=== PATIENT | female | born 1955 | race Caucasian/White ===

== ENCOUNTER → 2017-04-07 13:04 | Outpatient (CLI) | payer OTHER, SELFPAY ==
[2017-04-07 16:09] LABS: D-Dimer Quantitative (DVT/PE) < 0.27 FEU/ug/m (0.27-0.49)
== END ==
PROVIDERS: Family Provider Family Medicine; PCP Family Medicine; Visit Provider Family Medicine
DX: R05 Cough (principal)
CPT/HCPCS: 36415; 85379

== ENCOUNTER → 2017-06-01 09:03 | Outpatient (CLI) | payer OTHER, SELFPAY ==
--- NOTE | 2017-06-01 09:10 | RAD_ITS ---
STUDY: X-RAY - LEFT SHOULDER REASON FOR EXAM: Female, 61 years old. Pain. TECHNIQUE: 4 view(s) of the shoulder. COMPARISON: None. FINDINGS: Normal glenohumeral articulation. Normal acromioclavicular joint. Normal acromion. Normal humeral head and visualized proximal humerus. Surgical clips are seen in the left axillary region. Normal visualized pulmonary apex. RAD/Shoulder min 2 Views IMPRESSION: Normal x-ray examination of the shoulder. Electronically Signed: Shahram Steele MD at 15:47 EDT Tel [phone], Service support ,
--- NOTE | 2017-06-01 09:10 | RAD_ITS ---
STUDY: X-RAY - CERVICAL SPINE REASON FOR EXAM: Female, 61 years old. Neck pain. TECHNIQUE: 5 view(s) of the cervical spine were obtained including oblique views. COMPARISON: None FINDINGS: Normal anterior atlantoaxial articulation. Normal odontoid process. There is straightening of the normal cervical lordosis. There is multi-level endplate spondylosis. There is multi-level degenerative disc disease with multilevel disc space narrowing. Normal visualized intervertebral neuroforamina. The soft tissue structures are unremarkable. RAD/Cerv Spine 4 or 5 Views IMPRESSION: Anterior spondylosis and disc space narrowing at the C4-C5, C5-C6 and C6-C7 levels. Electronically Signed: Shahram Steele MD at 15:49 EDT Tel [phone], Service support ,
== END ==
PROVIDERS: Family Provider Family Medicine; PCP Family Medicine; Visit Provider Family Medicine
DX: M54.2 Cervicalgia (principal); M25.512 Pain in left shoulder
CPT/HCPCS: 72050; 73030

== ENCOUNTER → 2017-06-04 09:58 | Outpatient (CLI) | payer OTHER, SELFPAY ==
--- NOTE | 2017-06-04 09:59 | ECHOCS_ITS ---
Reason For Study: Palpitations Procedure This was a 2D Doppler, Color Flow transthoracic echocardiogram. Exam performed in department. Left Ventricle Normal size and thickness. The estimated ejection fraction is 65 %. Stage 1 diastolic dysfunction. No regional wall motion abnormalities noted. Right Ventricle Normal size and thickness. Normal systolic function. Atria Normal left atrium. Normal right atrium. Normal atrial septum. Mitral Valve The mitral valve is structurally normal. No prolapse or stenosis seen. Trivial mitral valve insufficiency. Tricuspid Valve Normal tricuspid valve. Trivial tricuspid valve insufficiency. Right ventricular systolic pressure estimated to be 20 mmHg. Aortic Valve Normal aortic valve. Trisinus/trileaflet aortic valve. Pulmonic Valve Normal pulmonic valve. Great Vessels Normal aortic root. Normal arch. Normal inferior vena cava. Inferior vena cava collapse with sniff. Pericardium/Pleural No pericardial effusion. Medication Definity0.3ml given slow IV push to enhance endocardial definition. MMode/2D Measurements & Calculations LVIDd: 3.9 cm IVSd: 1.1 cm Ao root diam: 2.6 cm LVIDs: 2.8 cm LVPWd: 0.91 cm LA dimension: 4.1 cm RVDd: 2.7 cm FS: 28.5 % LAV(MOD-bp): 20.7 ml LA A4 area: 9.7 cm2 RA A4 area: 7.7 cm2 LAV(MOD-bp) Indexed: 11.9 ml/m2 LAV(MOD-sp2): 24.5 ml LAV(MOD-sp4): 16.9 ml Doppler Measurements & Calculations MV E max joseph: 70.3 cm/sec Lat Peak E' Joseph: 7.0 cm/sec Med Peak E' Joseph: 4.8 cm/sec MV A max joseph: 100.9 cm/sec E/E' lat: 10.1 E/E' med: 14.5 MV E/A: 0.70 Ao V2 max: 108.3 cm/sec LV V1 max: 86.0 cm/sec PA V2 max: 79.7 cm/sec Ao max P.7 mmHg LV V1 max P.0 mmHg Ao V2 mean: 83.8 cm/sec Ao mean P.1 mmHg Ao V2 VTI: 23.8 cm TR max joseph: 193.4 cm/sec TR max P.1 mmHg Interpretation Summary The estimated ejection fraction is 65 %. Stage 1 diastolic dysfunction. Trivial mitral valve insufficiency. Trivial tricuspid valve insufficiency. Right ventricular systolic pressure estimated to be 20 mmHg. There is no comparison study available. Contrast injection was performed. The study was technically difficult. Ordering Physician: Mando Woodruff Referring Physician: Mando Woodruff Performed By: Ce Cox RDCS, RVT
== END ==
PROVIDERS: Family Provider Family Medicine; PCP Family Medicine; Visit Provider Internal Medicine Cardiovascular Disease
DX: R00.2 Palpitations (principal); I10 Essential (primary) hypertension; E78.5 Hyperlipidemia, unspecified; R00.0 Tachycardia, unspecified; E66.9 Obesity, unspecified
CPT/HCPCS: 93306; Q9957; A4216; C8929

== ENCOUNTER → 2017-06-30 13:26 | Outpatient (CLI) | payer OTHER, SELFPAY ==
--- NOTE | 2017-06-30 13:27 | STE_ITS ---
Reason For Study: PALPITATIONS, HTN, Stress Results Protocol: Sai Protocol Maximum Predicted HR: 160 bpm Target HR: 136 bpm% Max imum Predicted HR: 112 % DurationHeart Rate Stage (mm:ss) (bpm) BPCom ment BASELINE 96 162/86 0.2 ML DEFINITY STAGE 1 3:00 15 7 210/50 STAGE 2 3:00 17 9 220/460.2 ML DEFINITY RECOVERY 115 152/8 60.1 ML DEFINITY Stress Duration: 6:00 mm:ss Maximum Stress HR: 179 bpm Baseline Echocardiogram Findings The estimated ejection fraction is 65 %. Stress Echo Wall motion Data Resting WMIntermediate WMStress WM Resting Wall Motion Wall Motion Stress No regional wall motion No regional wall motion abnormalities noted. abnormalities noted. EKG Data Normal intervals are noted. The patient exercised according to the regular Sai protocol for a total duration of 6:00. The maximum heart rate attained was 179 beats per minute. This was 111% of maximum predicted heart rate. The patient exercised into stage 3 of the Sai protocol. During stress, there were no ST or T wave changes noted to suggest ischemia. No arrhythmias noted. No clinical angina was noted. Interpretation Summary The study was technically difficult. Contrast injection was performed. The estimated ejection fraction is 65 %. Normal adequate treadmill echocardiogram. Negative for ischemia by ECG and ECHO criteria. No anginal symptoms noted. No arryhthmias noted. Average exercise capacity for age. Final LVEF=75%. Decreased sensitivity due to poor echo windows and need for Definity. Ordering Physician: Mando Woodruff Referring Physician: Mando Woodruff Performed By: Ce Cox, FRANCESCO, RVT
== END ==
PROVIDERS: Family Provider Family Medicine; PCP Family Medicine; Visit Provider Internal Medicine Cardiovascular Disease
DX: R00.2 Palpitations (principal); I10 Essential (primary) hypertension; E78.5 Hyperlipidemia, unspecified; R00.0 Tachycardia, unspecified; I49.8 Other specified cardiac arrhythmias; E66.9 Obesity, unspecified
CPT/HCPCS: 93017; 93350; Q9957; A4216; C8928

== ENCOUNTER → 2017-09-02 15:28 | Outpatient (CLI) | payer OTHER, SELFPAY ==
--- NOTE | 2017-09-02 15:32 | MRI_ITS ---
STUDY: MRI CERVICAL SPINE WITHOUT CONTRAST REASON FOR EXAM: Female, 61 years old. CONSTANT R NECK PAIN, PULLING, RADIATES DOWN R ARM X 4 MONTHS TECHNIQUE: Standardized fat and water weighted pulse sequences were obtained in the sagittal and axial planes. COMPARISON: None FINDINGS: Normal foramen magnum and brainstem-cervical cord junction. Normal craniovertebral junction. There are degenerative changes of the anterior atlantoaxial articulation. Normal odontoid process. Normal cervical lordosis. Normal vertebral bodies and posterior osseous elements. C2-3: Normal endplates. Normal disc height, signal and morphology. Normal central canal and intervertebral neural foramina. C3-4: Normal endplates. Normal disc height, signal and morphology. Normal central canal and intervertebral neural foramina. C4-5: Normal endplates. Normal disc height, signal and morphology. Normal central canal and intervertebral neural foramina. C5-6: Endplate spondylosis. Central and paracentral disc bulge. Degenerative changes of the bilateral facet joints and uncovertebral joints. Mild narrowing of the central canal. Normal bilateral intervertebral neural foramina. C6-7: Endplate spondylosis. Central and paracentral disc bulge more prominent on the right side revision C7 nerve root. Degenerative changes of the bilateral facet joints and uncovertebral joints. Moderate narrowing of the central canal and mild narrowing of the bilateral intervertebral neural foramina. C7-T1: Normal endplates. Normal disc height, signal and morphology. Normal central canal and intervertebral neural foramina. Normal cervical cord. Normal visualized soft tissue structures. MRI/Spine Cervical (Routine) IMPRESSION: C5-6 and C6-7 degenerative changes, as described above. Electronically Signed: Lissy Rick MD at 4:55 EDT Tel , Service support ,
== END ==
LOC: MRI 15:28
PROVIDERS: Family Provider Family Medicine; PCP Family Medicine; Visit Provider Family Medicine
DX: M50.30 Other cervical disc degeneration, unspecified cervical region (principal); M47.22 Other spondylosis with radiculopathy, cervical region; M46.82 Other specified inflammatory spondylopathies, cervical region; R42 Dizziness and giddiness
CPT/HCPCS: 72141

== ENCOUNTER → 2017-10-05 12:18 | Outpatient (CLI) | payer SELFPAY, OTHER ==
[2017-10-05 12:40] LABS: CREATININE FINGERSTICK < 0.6 mg/dL (0.55-1.02); EGFR FINGERSTICK > 60.0000 mL/min (>60)
== END ==
PROVIDERS: Family Provider Family Medicine; PCP Family Medicine; Visit Provider Obstetrics & Gynecology
DX: N63.10 Unspecified lump in the right breast, unspecified quadrant (principal); Z85.3 Personal history of malignant neoplasm of breast; Z90.13 Acquired absence of bilateral breasts and nipples
CPT/HCPCS: 77059; A9585; A4216; C8908

== ENCOUNTER → 2017-11-01 13:13 | Outpatient (CLI) | payer OTHER, SELFPAY ==
[2017-11-01 16:16] LABS: Absolute Lymphocyte Count 2.89 X10^3/ul (0.83-4.51); Basophil# 0.05 X10^3/uL; Basophil% 0.6 % (0-1); Differential Indicated SCAN CRITERIA MET; Eosinophil# 0.28 X10^3/uL; Eosinophils% 3.5 % (0-5); Hematocrit 44.5 % (37-47); Lymphocyte # 2.89 X10^3/ul (4.0); Lymphocyte % 36.3 % (19-41); Mean Corp Hgb Conc 31.5 g/gl (32-36); Mean Corpuscular Hgb 30.8 pg (27.0-32.0); Mean Platelet Vol. 9.9 fl (6.2-12.0); Monocyte# 0.73 X10^3/uL; Monocyte% 9.2 % (0-10); Neutrophil % 50.3 % (47-70); POSITIVE COUNT NO; POSITIVE DIFFERENTIAL NO; POSITIVE MORPHOLOGY YES; Platelet Count 228 K/mm3 (150-450); RBC Distribution Width CV 12.4 % (11.6-14.6); RBC Distribution Width SD 44.1 fl (35.1-43.9); Red Blood Count 4.54 M/mm3 (4.2-5.4)
[2017-11-01 17:16] LABS: Differential Comment SCANNED
== END ==
PROVIDERS: Family Provider Family Medicine; PCP Family Medicine; Visit Provider Family Medicine
DX: J01.90 Acute sinusitis, unspecified (principal); R05 Cough; M47.22 Other spondylosis with radiculopathy, cervical region
CPT/HCPCS: 36415; 85025; 87070; 87205; 87633

== ENCOUNTER → 2017-12-02 16:46 | Outpatient (CLI) | payer OTHER, SELFPAY ==
--- NOTE | 2017-12-02 17:13 | RAD_ITS ---
STUDY: X-RAY CHEST REASON FOR EXAM: Female, 62 years old. Cough TECHNIQUE: Frontal and lateral views COMPARISON: February 24, 2017 FINDINGS: The lungs are clear and expanded. There is no demonstrated pleural abnormality. Normal size heart. Normal mediastinum and brooklynn. Normal visualized pulmonary arteries. Normal visualized aortic arch and descending thoracic aorta. Normal visualized thoracic spine. Normal visualized ribs, clavicles, and shoulders. There is no demonstrated abnormality of the visualized soft tissue structures of the upper abdomen. RAD/Chest PA and Lateral IMPRESSION: Normal x-ray examination of the chest. Electronically Signed: Stevie John DO at 21:45 EDT Tel [phone], Service support ,
[2017-12-02 17:33] LABS: Absolute Lymphocyte Count 3.05 X10^3/ul (0.83-4.51); Absolute Neutrophil Count 3.7 X10^3/uL (2.0-7.7); Basophil# 0.02 X10^3/uL; Basophil% 0.3 % (0-1); Eosinophil# 0.19 X10^3/uL; Eosinophils% 2.5 % (0-5); Hematocrit 42.1 % (37-47); Hemoglobin 13.5 g/dl (12.0-15.0); Lymphocyte # 3.05 X10^3/ul (4.0); Lymphocyte % 40.7 % (19-41); Mean Corp Hgb Conc 32.1 g/gl (32-36); Mean Corpuscular Hgb 30.9 pg (27.0-32.0); Mean Corpuscular Volume 96.3 fL (81-99); Mean Platelet Vol. 9.6 fl (6.2-12.0); Monocyte# 0.53 X10^3/uL; Monocyte% 7.1 % (0-10); Neutrophil % 49.3 % (47-70); Platelet Count 247 K/mm3 (150-450); RBC Distribution Width CV 12.3 % (11.6-14.6); RBC Distribution Width SD 43.2 fl (35.1-43.9); Red Blood Count 4.37 M/mm3 (4.2-5.4); White Blood Count 7.5 K/mm3 (4.4-11.0)
[2017-12-02 17:51] LABS: POSITIVE COUNT NO; POSITIVE DIFFERENTIAL NO; POSITIVE MORPHOLOGY NO
== END ==
PROVIDERS: Family Provider Family Medicine; PCP Family Medicine; Referring Provider Family Medicine; Visit Provider Family Medicine
DX: R05 Cough (principal)
CPT/HCPCS: 36415; 71046; 85025

== ENCOUNTER → 2017-12-30 14:51 | Outpatient (CLI) | payer OTHER, SELFPAY ==
[2017-12-30 18:18] LABS: Hemoglobin A1c 7.1 % (4.2-6.3)
[2017-12-30 18:21] LABS: ALB/GLOB Ratio 1.2 RATIO (0.9-2.4); AST(SGOT) 23 U/L (15-37); Alanine Aminotransfer ALT/SGPT 40 U/L (13-56); Albumin, Serum 3.7 g/dL (3.2-5.0); Alkaline Phosphatase 103 U/L (45-117); Anion Gap 8 (5-15); BUN 14 mg/dL (7-18); BUN/Creat Ratio 20.5 RATIO (10-20); Calcium,Total 9.2 mg/dL (8.5-10.1); Chloride 99 mmol/L (98-107); Cholesterol 182 mg/dL (200); Creatinine, Serum 0.68 mg/dL (0.55-1.02); EST Glomerular Filtration Rate 93 mL/min (>60); Est Glom Filt Rate - Afr Amer 112 mL/min (>60); Globulin 3.1 g/dL (2.2-4.2); Glucose 118 mg/dL (74-106); High Density Lipoprotein 47 mg/dL; Potassium 3.7 mmol/L (3.5-5.1); Protein, Total 6.8 g/dL (6.4-8.2); Sodium Level 138 mmol/L (136-145); T4 Free Direct 0.92 ng/dL (0.76-1.46); Thyroid Stim Hormone (TSH) 0.78 uIU/mL (0.358-3.74); Triglycerides 257 mg/dL; Very Low Density Lipoprotein 51 mg/dL (5-40)
[2017-12-30 18:37] LABS: Microalbumin,Random Urine < 5.0 mg/L (NO RANGE EST.)
== END ==
PROVIDERS: Family Provider Family Medicine; PCP Family Medicine; Visit Provider Family Medicine
DX: Z00.00 Encounter for general adult medical examination without abnormal findings (principal); E11.9 Type 2 diabetes mellitus without complications; I10 Essential (primary) hypertension; E78.5 Hyperlipidemia, unspecified
CPT/HCPCS: 36415; 80053; 80061; 82043; 82570; 83036; 84439; 84443

== ENCOUNTER → 2018-01-04 09:45 | Outpatient (CLI) | payer OTHER, SELFPAY ==
--- NOTE | 2018-01-04 15:57 | PFTCOMP_ITS ---
COMPLETE PULMONARY FUNCTION TEST INTERPRETATION Brief HPI: Patient is a 62 year old female, currently under the care of Dr. Rosales, who presents to [facility] for complete pulmonary function tests secondary to diagnosis of chronic cough. Respiratory therapist reports good effort and reproducible results. Interpretation: Forced expiration spirometry shows no large airways obstructive ventilatory defect with an FEV1 of 103% predicted. There is no significant bronchodilator re sponse by strict ATS criteria. Spirograms are of good quality and plateau normally. The respiratory flow volume loop shows a normal pattern. Lung volumes by body plethysmography show a normal total lung capacity at 3.84 L, 90% predicted. All other lung volumes are within normal limits. Diffusion capacity by carbon monoxide is normal at 72% predicted. The airway resistance is normal. No previous pulmonary function tests were available for review. Impression: These pulmonary function tests are within normal limits
== END ==
PROVIDERS: Family Provider Family Medicine; PCP Family Medicine; Referring Provider Internal Medicine Critical Care Medicine; Visit Provider Internal Medicine Critical Care Medicine
DX: R05 Cough (principal)
CPT/HCPCS: 94060; 94726; 94729

== ENCOUNTER → 2018-02-24 16:28 | Outpatient (CLI) | payer OTHER, SELFPAY ==
[2018-01-05 09:14] VITALS: BMI 31.9
== END ==
PROVIDERS: Family Provider Family Medicine; PCP Family Medicine; Referring Provider Nurse Practitioner Acute Care; Visit Provider Nurse Practitioner Acute Care
DX: R05 Cough (principal)
CPT/HCPCS: 87070; 87205

== ENCOUNTER → 2018-05-18 11:08 | Outpatient (CLI) | payer OTHER, SELFPAY ==
[2018-01-05 09:14] VITALS: BMI 31.9
--- NOTE | 2018-05-18 11:11 | RAD_ITS ---
STUDY: X-RAY - LEFT WRIST REASON FOR EXAM: Female, 62 years old. Fall May 02. Lateral wrist pain. TECHNIQUE: 3 view(s) of the wrist were obtained. COMPARISON: None. FINDINGS: Normal visualized distal radius and ulna. Normal radiocarpal articulation. Normal distal radioulnar articulation. Normal carpal bones. There is degenerative arthrosis of the carpal articulations. There is degenerative arthrosis of the carpometacarpal articulation of the thumb. Normal second through fifth carpometacarpal articulations. Normal visualized metacarpal bones. The soft tissue structures are unremarkable. RAD/Wrist min 3 Views IMPRESSION: Degenerative changes of the wrist and hand without acute fracture or dislocation. Electronically Signed: Mark Jones DO at 15:26 EDT Tel [phone], Service support ,
== END ==
PROVIDERS: Family Provider Family Medicine; PCP Family Medicine; Referring Provider Family Medicine; Visit Provider Family Medicine
DX: M25.532 Pain in left wrist (principal)
CPT/HCPCS: 73110

== ENCOUNTER → 2018-12-13 12:56 | Outpatient (CLI) | payer OTHER, SELFPAY ==
[2018-07-04 13:16] VITALS: BMI 31.9
--- NOTE | 2018-12-13 13:45 | MRI_ITS ---
STUDY: BILATERAL BREAST MR WITHOUT AND WITH CONTRAST REASON FOR EXAM: Female, 63 years old. History of bilateral mastectomies in 2007 for BRCA1 gene mutation. Evaluate for implant integrity and breast cancer. TECHNIQUE: Multi-sequence multi-echo imaging of both breasts was performed with a dedicated breast coil. T1-weighted and T2-weighted images were performed before the administration of contrast. T1-weighted images were also performed after the administration of IV Dotarem 15 without complications. COMPARISON: Prior breast MRI dated October 05, 2017 FINDINGS: Stable bilateral mastectomies with subpectoral silicone implants. Minimal folds bilaterally, relatively unchanged. No complications identified. No abnormal enhancing masses or areas of non-mass enhancement in the left breast. No enlarged or abnormal lymph nodes. No abnormality in the visualized regions of the chest or liver. MRI/Breast Bilateral W/O and W IMPRESSION: Bilateral mastectomy with subpectoral silicone implant placement without complications. No other abnormality is present. CATEGORY: BIRADS Category 2: Benign. A letter regarding these results will be sent to the patient by the facility within 30 days. Electronically Signed: Gerald Chery MD at 16:39 EDT , Service support ,
[2018-12-13 13:51] LABS: CREATININE FINGERSTICK < 0.6 mg/dL (0.55-1.02); EGFR FINGERSTICK > 60.0000 mL/min (>60)
== END ==
PROVIDERS: Family Provider Family Medicine; PCP Family Medicine; Referring Provider Obstetrics & Gynecology; Visit Provider Obstetrics & Gynecology
DX: Z85.3 Personal history of malignant neoplasm of breast (principal); Z98.82 Breast implant status; Z15.01 Genetic susceptibility to malignant neoplasm of breast
CPT/HCPCS: 77049; A9575; A4216; C8908

== ENCOUNTER → 2019-07-26 09:25 | Outpatient (CLI) | payer OTHER, SELFPAY ==
[2018-07-04 13:16] VITALS: BMI 31.9
[2019-07-26 10:50] LABS: Absolute Lymphocyte Count 2.57 X10^3/uL (0.83-4.51); Absolute Neutrophil Count 3.5 X10^3/uL (2.0-7.7); Basophil# 0.03 X10^3/uL; Basophil% 0.5 % (0-1); Eosinophil# 0.08 X10^3/uL; Eosinophils% 1.2 % (0-5); Hematocrit 43.3 % (37-47); Hemoglobin 14.2 g/dL (12.0-15.0); Lymphocyte # 2.57 X10^3/ul (4.0); Lymphocyte % 38.6 % (19-41); Mean Corp Hgb Conc 32.8 g/dL (32-36); Mean Corpuscular Hgb 32.2 pg (27.0-32.0); Mean Corpuscular Volume 98.2 fL (81-99); Mean Platelet Vol. 9.8 fl (6.2-12.0); Monocyte# 0.48 X10^3/uL; Monocyte% 7.2 % (0-10); NRBC Flagged by Analyzer 0 % (0-5); Neutrophil # 3.48 X10^3/uL (2.7-7.7); Neutrophil % 52.3 % (47-70); Platelet Count 229 K/mm3 (150-450); RBC Distribution Width CV 11.9 % (11.6-14.6); RBC Distribution Width SD 42.9 fl (35.1-43.9); Red Blood Count 4.41 M/mm3 (4.2-5.4); White Blood Count 6.7 K/mm3 (4.4-11.0)
[2019-07-26 10:56] LABS: Hemoglobin A1c 6.9 % (3.8-5.6)
[2019-07-26 11:01] LABS: Microalbumin,Random Urine 9.1 mg/L (NO RANGE EST.); Microalbumin:Creatinine Ratio 5.8 mg/g CRE (<30 mg/g CRE)
[2019-07-26 11:22] LABS: ALB/GLOB Ratio 1.2 RATIO (0.9-2.4); AST(SGOT) 118 U/L (15-37); Alanine Aminotransfer ALT/SGPT 129 U/L (13-56); Albumin, Serum 3.8 g/dL (3.2-5.0); Alkaline Phosphatase 103 U/L (45-117); Anion Gap 7 (5-15); BUN 13 mg/dL (7-18); Calcium,Total 9.5 mg/dL (8.5-10.1); Chloride 102 mmol/L (98-107); Cholesterol 172 mg/dL (200); Creatinine, Serum 0.72 mg/dL (0.55-1.02); EST Glomerular Filtration Rate 87 mL/min (>60); Est Glom Filt Rate - Afr Amer 105 mL/min (>60); Globulin 3.3 g/dL (2.2-4.2); Glucose 204 mg/dL (74-106); High Density Lipoprotein 46 mg/dL; Potassium 3.7 mmol/L (3.5-5.1); Protein, Total 7.1 g/dL (6.4-8.2); Sodium Level 138 mmol/L (136-145); T4 Free Direct 0.91 ng/dL (0.76-1.46); Thyroid Stim Hormone (TSH) 1.41 uIU/mL (0.358-3.74); Triglycerides 302 mg/dL; Very Low Density Lipoprotein 60 mg/dL (5-40)
== END ==
PROVIDERS: PCP Family Medicine; Referring Provider Family Medicine; Visit Provider Family Medicine
DX: Z00.00 Encounter for general adult medical examination without abnormal findings (principal); E11.9 Type 2 diabetes mellitus without complications; I10 Essential (primary) hypertension; E04.1 Nontoxic single thyroid nodule
CPT/HCPCS: 36415; 80053; 80061; 82043; 82570; 83036; 84439; 84443; 85025

== ENCOUNTER → 2019-08-16 15:00 | Outpatient (CLI) | payer OTHER, SELFPAY ==
[2018-07-04 13:16] VITALS: BMI 31.9
--- NOTE | 2019-08-16 15:03 | US_ITS ---
STUDY: SUPERFICIAL ULTRASOUND - LEFT SUPERIOR ANTERIOR NECK REASON FOR EXAM: Female, 63 years old. POSSIBLE ENLARGE LYMPH NODE ON ANT NECK TECHNIQUE: A superficial ultrasound was performed with real-time and static cho-scale imaging. COMPARISON: None. FINDINGS: Multiple images of the left anterior superior neck were acquired which show no mass or fluid collection or abnormal vascular structure on the provided images. No demonstrated lymphadenopathy. The visualized soft tissues do not appear distorted. The included portions of the submandibular gland do not show an obvious calcification or large mass or cyst, but ultrasound is not considered a benign to exclude edema or enlargement. The right anterior neck region was evaluated for comparison and appears grossly unremarkable by ultrasound criteria. US/Head/Neck Soft Tissue IMPRESSION: The included portions of the submandibular gland do not show an obvious calcification or large mass or cyst, but ultrasound is not considered a benign to exclude edema or enlargement. If clinical concerns persist obtain a CT of the neck with contrast. Electronically Signed: Steven Simmons MD at 23:56 EDT , Service support ,
== END ==
PROVIDERS: PCP Family Medicine; Referring Provider Family Medicine; Visit Provider Family Medicine
DX: R22.1 Localized swelling, mass and lump, neck (principal); E04.1 Nontoxic single thyroid nodule
CPT/HCPCS: 76536

== ENCOUNTER → 2019-08-30 15:41 | Outpatient (CLI) | payer OTHER, SELFPAY ==
[2018-07-04 13:16] VITALS: BMI 31.9
[2019-08-30 18:04] LABS: AST(SGOT) 59 U/L (15-37); Alanine Aminotransfer ALT/SGPT 102 U/L (13-56); Albumin, Serum 3.9 g/dL (3.2-5.0); Alkaline Phosphatase 119 U/L (45-117); Bilirubin, Direct 0.09 mg/dL (0.00-0.30); Globulin 3.4 g/dL (2.2-4.2); Protein, Total 7.3 g/dL (6.4-8.2)
== END ==
PROVIDERS: PCP Family Medicine; Referring Provider Family Medicine; Visit Provider Family Medicine
DX: R74.8 Abnormal levels of other serum enzymes (principal)
CPT/HCPCS: 36415; 80076

== ENCOUNTER → 2019-09-28 13:04 | Outpatient (CLI) | payer OTHER, SELFPAY ==
[2018-07-04 13:16] VITALS: BMI 31.9
[2019-09-28 15:46] LABS: ALB/GLOB Ratio 1.1 RATIO (0.9-2.4); AST(SGOT) 40 U/L (15-37); Alanine Aminotransfer ALT/SGPT 74 U/L (13-56); Albumin, Serum 3.6 g/dL (3.2-5.0); Alkaline Phosphatase 126 U/L (45-117); Anion Gap 5 (5-15); BUN 16 mg/dL (7-18); BUN/Creat Ratio 20.6 RATIO (10-20); Calcium,Total 9.1 mg/dL (8.5-10.1); Chloride 101 mmol/L (98-107); Creatinine, Serum 0.78 mg/dL (0.55-1.02); EST Glomerular Filtration Rate 80 mL/min (>60); Est Glom Filt Rate - Afr Amer 97 mL/min (>60); Globulin 3.4 g/dL (2.2-4.2); Glucose 170 mg/dL (74-106); Potassium 3.6 mmol/L (3.5-5.1); Sodium Level 137 mmol/L (136-145)
== END ==
PROVIDERS: PCP Family Medicine; Referring Provider Family Medicine; Visit Provider Family Medicine
DX: R74.8 Abnormal levels of other serum enzymes (principal)
CPT/HCPCS: 36415; 80053

== ENCOUNTER → 2020-02-09 12:53 | Outpatient (CLI) | payer OTHER, SELFPAY ==
[2018-07-04 13:16] VITALS: BMI 31.9
--- NOTE | 2020-02-09 13:14 | MRI_ITS ---
STUDY: BILATERAL BREAST MR WITHOUT AND WITH CONTRAST REASON FOR EXAM: Female, 64 years old. History of breast cancer. Silicone implant placement. Breast pain. TECHNIQUE: Multi-sequence multi-echo imaging of both breasts was performed with a dedicated breast coil. T1-weighted and T2-weighted images were performed before the administration of contrast. T1-weighted images were also performed after the administration of iv dotarem 15cc without complications. COMPARISON: Prior breast MRI dated 12/13/2018 FINDINGS: RIGHT BREAST: Status post mastectomy with silicone implant placement. Prominent folds unchanged from prior breast MRI study. There are no abnormal enhancing masses or areas of non-mass enhancement in the right breast. LEFT BREAST: Status post mastectomy with silicone implant placement. Prominent folds unchanged from prior breast MRI study. There are no abnormal enhancing masses or areas of non-mass enhancement in the left breast. There are no enlarged or abnormal lymph nodes. There is no abnormality in the visualized regions of the chest or liver. MRI/Breast Bilateral W/O and W IMPRESSION: Bilateral mastectomy with silicone implant placement. No complications. No suspicious lesions. CATEGORY: BIRADS Category 2: Benign. A letter regarding these results will be sent to the patient by the facility within 30 days. Electronically Signed: Gerald Chery MD at 17:06 EST , Service support ,
[2020-02-09 13:30] LABS: Creatinine, Serum 1.08 mg/dL (0.55-1.02); EST Glomerular Filtration Rate 54 mL/min (>60); Est Glom Filt Rate - Afr Amer 66 mL/min (>60)
== END ==
PROVIDERS: PCP Family Medicine; Referring Provider Obstetrics & Gynecology; Visit Provider Obstetrics & Gynecology
DX: N64.4 Mastodynia (principal); Z98.82 Breast implant status; Z90.13 Acquired absence of bilateral breasts and nipples; Z85.3 Personal history of malignant neoplasm of breast; Z15.01 Genetic susceptibility to malignant neoplasm of breast
CPT/HCPCS: 36415; 77049; 82565; A9575; A4216; C8908

== ENCOUNTER → 2020-02-19 09:17 | Outpatient (CLI) | payer OTHER, SELFPAY ==
[2018-07-04 13:16] VITALS: BMI 31.9
[2020-02-19 12:14] LABS: Absolute Lymphocyte Count 2.82 X10^3/uL (0.83-4.51); Absolute Neutrophil Count 3.6 X10^3/uL (2.0-7.7); Basophil# 0.04 X10^3/uL; Basophil% 0.6 % (0-1); Eosinophils% 1.4 % (0-5); Hemoglobin 13.8 g/dL (12.0-15.0); Lymphocyte # 2.82 X10^3/ul (4.0); Lymphocyte % 40.3 % (19-41); Mean Corp Hgb Conc 32.1 g/dL (32-36); Mean Corpuscular Hgb 31.2 pg (27.0-32.0); Mean Corpuscular Volume 97.1 fL (81-99); Mean Platelet Vol. 9.9 fl (6.2-12.0); Monocyte# 0.46 X10^3/uL; Monocyte% 6.6 % (0-10); NRBC Flagged by Analyzer 0 % (0-5); Neutrophil # 3.56 X10^3/uL (2.7-7.7); Platelet Count 236 K/mm3 (150-450); RBC Distribution Width CV 11.9 % (11.6-14.6); RBC Distribution Width SD 42.8 fl (35.1-43.9); Red Blood Count 4.43 M/mm3 (4.2-5.4)
[2020-02-19 12:32] LABS: Hemoglobin A1c 8.1 % (3.8-5.6)
[2020-02-19 12:38] LABS: ALB/GLOB Ratio 1.2 RATIO (0.9-2.4); AST(SGOT) 36 U/L (15-37); Alanine Aminotransfer ALT/SGPT 68 U/L (13-56); Albumin, Serum 3.7 g/dL (3.2-5.0); Alkaline Phosphatase 116 U/L (45-117); Anion Gap 5 (5-15); BUN 13 mg/dL (7-18); BUN/Creat Ratio 16.6 RATIO (10-20); Calcium,Total 9.1 mg/dL (8.5-10.1); Chloride 100 mmol/L (98-107); Cholesterol 186 mg/dL (200); Creatinine, Serum 0.78 mg/dL (0.55-1.02); EST Glomerular Filtration Rate 79 mL/min (>60); Est Glom Filt Rate - Afr Amer 95 mL/min (>60); Globulin 3.2 g/dL (2.2-4.2); Glucose 229 mg/dL (74-106); High Density Lipoprotein 45 mg/dL; Potassium 3.9 mmol/L (3.5-5.1); Protein, Total 6.9 g/dL (6.4-8.2); Sodium Level 136 mmol/L (136-145); Triglycerides 356 mg/dL; Very Low Density Lipoprotein 71 mg/dL (5-40)
== END ==
PROVIDERS: PCP Family Medicine; Visit Provider Family Medicine
DX: I10 Essential (primary) hypertension (principal); E11.9 Type 2 diabetes mellitus without complications; E78.5 Hyperlipidemia, unspecified; R74.8 Abnormal levels of other serum enzymes
CPT/HCPCS: 36415; 80053; 80061; 83036; 85025

== ENCOUNTER → 2020-08-06 08:11 | Outpatient (CLI) | payer OTHER, SELFPAY ==
[2018-07-04 13:16] VITALS: BMI 31.9
[2020-08-06 10:37] LABS: ALB/GLOB Ratio 1.2 RATIO (0.9-2.4); AST(SGOT) 37 U/L (15-37); Alanine Aminotransfer ALT/SGPT 69 U/L (13-56); Albumin, Serum 3.6 g/dL (3.2-5.0); Alkaline Phosphatase 123 U/L (45-117); Anion Gap 8 (5-15); BUN 13 mg/dL (7-18); BUN/Creat Ratio 17.6 RATIO (10-20); Calcium,Total 9.1 mg/dL (8.5-10.1); Chloride 101 mmol/L (98-107); Cholesterol 172 mg/dL (200); Creatinine, Serum 0.74 mg/dL (0.55-1.02); EST Glomerular Filtration Rate 84 mL/min (>60); Est Glom Filt Rate - Afr Amer 102 mL/min (>60); Globulin 3.1 g/dL (2.2-4.2); Glucose 248 mg/dL (74-106); High Density Lipoprotein 41 mg/dL; Potassium 3.9 mmol/L (3.5-5.1); Protein, Total 6.7 g/dL (6.4-8.2); Sodium Level 137 mmol/L (136-145); Triglycerides 366 mg/dL; Very Low Density Lipoprotein 73 mg/dL (5-40)
[2020-08-06 10:43] LABS: Microalbumin,Random Urine 7.5 mg/L (NO RANGE EST.); Microalbumin:Creatinine Ratio 10.7 mg/g CRE (<30 mg/g CRE)
== END ==
PROVIDERS: PCP Family Medicine; Referring Provider Family Medicine; Visit Provider Family Medicine
DX: E11.9 Type 2 diabetes mellitus without complications (principal); I10 Essential (primary) hypertension; K76.0 Fatty (change of) liver, not elsewhere classified
CPT/HCPCS: 36415; 80053; 80061; 82043; 82570; 83036

== ENCOUNTER → 2021-01-08 09:36 | Outpatient (CLI) | payer OTHER, SELFPAY | PROVIDERS: PCP Family Medicine; Referring Provider Physician Assistant; Visit Provider Physician Assistant | DX: Z20.822 Contact with and (suspected) exposure to COVID-19 (principal) | CPT/HCPCS: 87635; U0005; U0003 ==

== ENCOUNTER 2021-03-05 13:08 | Outpatient (CLI) | payer OTHER, SELFPAY ==
--- NOTE | 2021-03-05 13:20 | MRI_ITS ---
STUDY: BILATERAL BREAST MR WITHOUT AND WITH CONTRAST REASON FOR EXAM: Female, 65 years old. Silicone implants. History of breast cancer. BRCA positive. TECHNIQUE: Multi-sequence multi-echo imaging of both breasts was performed with a dedicated breast coil. T1-weighted and T2-weighted images were performed before the administration of contrast. T1-weighted images were also performed after the administration of 16 ml of Dotarem contrast without complications. COMPARISON: Prior breast MRI studies dated 02/09/2020 and 12/13/2089. FINDINGS: RIGHT BREAST: The breast tissue is scattered fibroglandular densities with minimal background enhancement. Stable subpectoral silicone implant. There are no abnormal enhancing masses or areas of non-mass enhancement in the right breast. LEFT BREAST: The breast tissue is scattered fibroglandular densities with minimal background enhancement. Stable subpectoral silicone implant There are no abnormal enhancing masses or areas of non-mass enhancement in the left breast. There are no enlarged or abnormal lymph nodes. There is no abnormality in the visualized regions of the chest or liver. MRI/Breast Bilateral W/O and W IMPRESSION: Stable breast MRI with contrast. Alternating annual screening mammogram could be considered. CATEGORY: BIRADS Category 2: Benign. A letter regarding these results will be sent to the patient by the facility within 30 days. Electronically Signed: Gerald Chery MD at 9:36 EST , Service support ,
[2021-03-05 14:16] LABS: CREATININE FINGERSTICK < 0.6 mg/dL (0.55-1.02); EGFR FINGERSTICK > 60.0000 mL/min (>60)
== END 2021-03-05 23:59 | disposition short-term general hospital (02) ==
PROVIDERS: PCP Family Medicine; Referring Provider Obstetrics & Gynecology; Visit Provider Obstetrics & Gynecology
DX: Z15.01 Genetic susceptibility to malignant neoplasm of breast (principal); Z85.3 Personal history of malignant neoplasm of breast; Z98.82 Breast implant status
CPT/HCPCS: 77049; A9575; C8908

== ENCOUNTER → 2021-08-07 | Outpatient (CLI) | payer OTHER, SELFPAY ==
[2021-08-07 12:22] LABS: Absolute Lymphocyte Count 2.72 X10^3/uL (0.83-4.51); Absolute Neutrophil Count 3.4 X10^3/uL (2.0-7.7); Basophil# 0.04 X10^3/uL; Basophil% 0.6 % (0-1); Eosinophil# 0.09 X10^3/uL; Eosinophils% 1.3 % (0-5); Hematocrit 43.3 % (37-47); Hemoglobin 14.1 g/dL (12.0-15.0); Lymphocyte # 2.72 X10^3/ul (0.83-4.51); Lymphocyte % 40.3 % (19-41); Mean Corp Hgb Conc 32.6 g/dL (32-36); Mean Corpuscular Hgb 31.9 pg (27.0-32.0); Mean Platelet Vol. 10.2 fl (6.2-12.0); Monocyte# 0.48 X10^3/uL; Monocyte% 7.1 % (0-10); NRBC Flagged by Analyzer 0 % (0-5); Neutrophil % 50.4 % (47-70); Platelet Count 233 K/mm3 (150-450); RBC Distribution Width CV 11.9 % (11.6-14.6); RBC Distribution Width SD 42.7 fl (35.1-43.9); Red Blood Count 4.42 M/mm3 (4.2-5.4); White Blood Count 6.8 K/mm3 (4.4-11.0)
[2021-08-07 12:42] LABS: Hemoglobin A1c 9.7 % (3.8-5.6)
[2021-08-07 12:46] LABS: ALB/GLOB Ratio 1.1 RATIO (0.9-2.4); AST(SGOT) 96 U/L (15-37); Alanine Aminotransfer ALT/SGPT 131 U/L (13-56); Albumin, Serum 3.6 g/dL (3.2-5.0); Alkaline Phosphatase 131 U/L (45-117); Anion Gap 8 (5-15); BUN 11 mg/dL (7-18); BUN/Creat Ratio 13.6 RATIO (10-20); Calcium,Total 9.2 mg/dL (8.5-10.1); Chloride 99 mmol/L (98-107); Cholesterol 139 mg/dL (200); Creatinine, Serum 0.81 mg/dL (0.55-1.02); EST Glomerular Filtration Rate 76 mL/min (>60); Est Glom Filt Rate - Afr Amer 92 mL/min (>60); Globulin 3.2 g/dL (2.2-4.2); Glucose 287 mg/dL (74-106); High Density Lipoprotein 37 mg/dL; Potassium 4.1 mmol/L (3.5-5.1); Protein, Total 6.8 g/dL (6.4-8.2); Sodium Level 134 mmol/L (136-145); Triglycerides 313 mg/dL; Very Low Density Lipoprotein 63 mg/dL (5-40)
[2021-08-07 13:01] LABS: Microalbumin,Random Urine 10.3 mg/L (NO RANGE EST.); Microalbumin:Creatinine Ratio 13.8 mg/g CRE (<30 mg/g CRE)
== END | disposition home or self-care (01) ==
LOC: MTLAB 10:28
PROVIDERS: PCP Family Medicine; Referring Provider Family Medicine; Visit Provider Family Medicine
DX: E11.9 Type 2 diabetes mellitus without complications (principal); K76.0 Fatty (change of) liver, not elsewhere classified; I10 Essential (primary) hypertension; E78.5 Hyperlipidemia, unspecified; E04.1 Nontoxic single thyroid nodule
CPT/HCPCS: 36415; 80053; 80061; 82043; 82570; 83036; 84443; 85025

== ENCOUNTER → 2021-11-20 | Outpatient (CLI) | payer MEDICARE, SELFPAY ==
[2021-11-20 17:42] LABS: Hematocrit 41.9 % (37-47); Hemoglobin 13.6 g/dL (12.0-15.0); Mean Corp Hgb Conc 32.5 g/dL (32-36); Mean Corpuscular Hgb 32.1 pg (27.0-32.0); Mean Corpuscular Volume 98.8 fL (81-99); Mean Platelet Vol. 11.1 fl (6.2-12.0); Platelet Count 158 K/mm3 (150-450); RBC Distribution Width CV 12.4 % (11.6-14.6); RBC Distribution Width SD 45.1 fl (35.1-43.9); Red Blood Count 4.24 M/mm3 (4.2-5.4); White Blood Count 6.6 K/mm3 (4.4-11.0)
[2021-11-20 17:53] LABS: Vitamin B12 246 pg/mL (211-911)
[2021-11-20 18:32] LABS: Ferritin 906 ng/mL (8-252); Iron 110 ug/dL (50-170); Iron Binding Capacity,Total 308 ug/dL (250-450); PERCENT IRON SATURATION 35.7 % (15.0-55.0); T4 Free Direct 1.04 ng/dL (0.76-1.46); Thyroid Stim Hormone (TSH) 0.83 uIU/mL (0.358-3.74)
[2021-11-21 07:52] LABS: Absolute Lymphocyte Count 2.23 X10^3/uL (0.83-4.51); Absolute Neutrophil Count 3.7 X10^3/uL (2.0-7.7); Basophil# 0.03 X10^3/uL; Basophil% 0.5 % (0-1); Eosinophil# 0.13 X10^3/uL; Lymphocyte # 2.23 X10^3/ul (0.83-4.51); Lymphocyte % 34.2 % (19-41); Monocyte# 0.46 X10^3/uL; NRBC Flagged by Analyzer 0 % (0-5); Neutrophil # 3.66 X10^3/uL (2.7-7.7)
[2021-11-27 10:26] LABS: Anti-Nuclear Antibody Test Negative (.); Vitamin D 1,25-Dihydroxy 9.2 pg/mL (24.8-81.5)
[2021-12-06 09:11] LABS: DHEA Sulfate 44.1 ug/dL (20.4-186.6); Testosterone, % Free 2.11 % (0.50-2.80); Testosterone, Free < 0.06 ng/dL (0.10-0.85); Testosterone, Total < 3 ng/dL (3-67)
[2021-12-06 11:42] LABS: Androstenedione 18 ng/dL (17-99); Sex Hormone-binding Globulin 19.2 nmol/L (17.3-125.0); Zinc, Plasma or Serum 66 ug/dL (44-115)
== END | disposition home or self-care (01) ==
PROVIDERS: PCP Family Medicine; Referring Provider Dermatology; Visit Provider Dermatology
DX: L65.0 Telogen effluvium (principal)
CPT/HCPCS: 36415; 82157; 82607; 82627; 82652; 82728; 82746; 83540; 83550; 84270; 84402; 84403; 84439; 84443; 84630; 85025; 85027; 86038; 82626

== ENCOUNTER → 2021-12-17 | Outpatient (CLI) | payer MEDICARE, SELFPAY ==
[2021-12-19 12:32] LABS: Transferrin 246 mg/dL (192-364)
== END | disposition home or self-care (01) ==
PROVIDERS: PCP Family Medicine; Visit Provider Family Medicine
DX: R79.89 Other specified abnormal findings of blood chemistry (principal); E11.9 Type 2 diabetes mellitus without complications; R74.8 Abnormal levels of other serum enzymes
CPT/HCPCS: 36415; 84466

== ENCOUNTER → 2021-12-26 | Outpatient (CLI) | payer MEDICARE, SELFPAY ==
[2021-12-26 10:23] LABS: CRP < 2.90 mg/L (0.0-3.0); Erythrocyte Sedimentation Rate 14 mm/hr (0-30); Ferritin 572 ng/mL (8-252)
[2021-12-26 10:24] LABS: Hemoglobin A1c 9.9 % (3.8-5.6)
== END | disposition home or self-care (01) ==
PROVIDERS: PCP Family Medicine; Referring Provider Family Medicine; Visit Provider Family Medicine
DX: E11.65 Type 2 diabetes mellitus with hyperglycemia (principal); R79.89 Other specified abnormal findings of blood chemistry
CPT/HCPCS: 36415; 82533; 82728; 83036; 85652; 86140

== ENCOUNTER → 2022-01-01 | Outpatient (CLI) | payer MEDICARE, SELFPAY ==
--- NOTE | 2022-01-01 15:26 | RAD_ITS ---
STUDY: X-RAY - LEFT SHOULDER REASON FOR EXAM: Female, 66 years old. PAIN TECHNIQUE: 3 view(s) of the shoulder. COMPARISON: None. FINDINGS: Narrowed glenohumeral articulation. Normal acromioclavicular joint. Normal acromion. Normal humeral head and visualized proximal humerus. The soft tissue structures are unremarkable. Normal visualized pulmonary apex. RAD/Shoulder min 2 Views IMPRESSION: Degenerative changes. No acute fracture or dislocation Electronically Signed: Camacho Blunt MD at 18:02 EST ,
== END | disposition home or self-care (01) ==
LOC: MTRAD 15:25
PROVIDERS: PCP Family Medicine; Referring Provider Family Medicine; Visit Provider Family Medicine
DX: M25.512 Pain in left shoulder (principal)
CPT/HCPCS: 73030

== ENCOUNTER 2022-01-13 06:24 | Day surgery (SDC) | payer MEDICARE, SELFPAY ==
[2022-01-13] VITALS (7 sets, daily range): BP systolic 86–127; BP diastolic 35–67; PULSE 74–86; RESP 16–18; TEMP 36.4–37.1; O2SAT 90–97; BMI 31.2
--- NOTE | 2022-01-13 | COLBX_PTH ---
PATIENT: HARLAN HERRING LOC: EN U#:[id number] AGE/SX: 66/F ROOM: RE01/13/[address]: Dr. Drew Casas MD : 1955 BED: DIS: 01/13/2022 SPEC #: [id number] RECD: 01/13/22 11:58 STATUS: DILAN SU #: [id number] JULIO CESAR: 01/13/22 00:[address]: Drew Casas DEPT: SURGICAL PATHOLOGY RECD BY: Praveen Brito ENTERED: 01/13/22 12:00 SP TYPE: COLON BX OTHR DR: Dr. Marquise Covarrubias, DO Tissues: Rectum, NOS Procedures: Surgery Specimen Level IV HEADER OPERATION: Colonoscopy (MAC) with polypectomy PRE-OP DIAGNOSIS: History of colon polyps TISSUE SUBMITTED: Rectal polyp MICROSCOPIC DIAGNOSIS Rectal polyp, polypectomy: Tubulovillous adenoma. SJ:jin 01/14/2022 MICROSCOPIC DESCRIPTION Slides are reviewed. GROSS DESCRIPTION Received in fixative is one container labeled with the patient's name and designated rectal polyp. The specimen consists of a pink-red polyp measuring 1 x 1.2 x 0.8 cm. The apparent base is inked. The polyp is serially sectioned and submitted entirely in one cassette. / SJ:rg 01/13/2022 TC:1 CPT: 26548
[2022-01-13] MEDS: Lactated Ringers 1,000 ML 15 ML IV (07:11)
--- NOTE | 2022-01-13 07:12 | HP.PCM_ITS ---
History and Physical Date of Admission: 01/13/22 Intake Visit Reasons:?CSCOPE Chief Complaint: c scope Is patient in pain?: No Allergies doxycycline Allergy (Verified 01/06/22 09:39) UnknownPenicillins Allergy (Verified 01/06/22 09:39) edemametoclopramide [From Reglan] Adverse Reaction (Severe, Verified 01/06/22 09:39) hallucinations & agreessionhydrocodone [From Vicodin] Adverse Reaction (Mild, Verified 01/06/22 09:39) itching/rashoxycodone [From Percocet] Adverse Reaction (Mild, Verified 01/06/22 09:39) rash/itchingSulfa (Sulfonamide Antibiotics) Adverse Reaction (Mild, Verified 01/06/22 09:39) Rash Medications aspirin 81 mg tablet,delayed release (Adult Aspirin Regimen) 81 mg PO QDAY 05/24/17 [History Confirmed 01/06/22] atorvastatin 20 mg tablet 20 mg PO QDAY 05/24/17 [History Confirmed 01/06/22] biotin 2,500 mcg capsule 2,500 mcg PO QDAY 05/24/17 [History Confirmed 01/06/22] buspirone 5 mg tablet 5 mg PO BID 05/24/17 [History Confirmed 01/06/22] calcium carbonate 600 mg-vitamin D3 5 mcg (200 unit) capsule (Calcium 600 + D(3)) cap PO QDAY 05/24/17 [History Confirmed 01/06/22] lisinopril 20 mg-hydrochlorothiazide 25 mg tablet 1 tab PO QDAY 05/24/17 [History Confirmed 01/06/22] lorazepam 0.5 mg tablet 0.5 mg PO Q4H PRN 05/24/17 [History Confirmed 01/06/22] metformin 500 mg tablet,extended release 24 hr 500 mg PO QDAY 05/24/17 [History Confirmed 01/06/22] benzonatate 200 mg capsule 200 mg PO TID PRN cough #90 caps 01/07/21 [Rx Confirmed 01/06/22] mometasone 50 mcg/actuation nasal spray 2 spray intranasal DAILY #17 grams 01/07/21 [Rx Confirmed 01/06/22] carvedilol 12.5 mg tablet 12.5 mg PO BID 01/06/22 [History Confirmed 01/06/22] empagliflozin 10 mg tablet (Jardiance) 10 mg PO DAILY 01/06/22 [History Confirmed 01/06/22] PFSH Medical History?(Updated 01/06/22 @ 10:[address] Drew Casas MD) Anxiety Benign neoplasm of colon BRCA gene mutation positive Breast cancer, left Hyperlipidemia Hypertension Obesity Seborrheic keratosis Skin cancer Thyroid nodule Type 2 diabetes mellitus without complications Vertigo Surgical History? Breast implant status H/O total hysterectomy (~1985) Hx of bilateral mastectomy Family History? Father?? Hypertension Parkinson's disease, Lewy bodyMother?? Ovarian cancerGrandmother?? Ovarian cancerGrandfather?? Parkinson's disease, Lewy bodyGrandfather?? Myocardial infarction Social History? household members:? spouse housing:? house current occupational status:? employed current occupation:? [employer] pets and animals:? No Smoking Status:? Former smoker quit date: 02/22/06 pack-years: 16 Tobacco: How many years used:? 32 second hand exposure:? No alcohol intake:? current alcohol intake frequency: a few times a week Alcohol type: wine substance use type:? does not use HPI HPI HPI: Patient is a 66-year-old female here for colonoscopy.? Her last colonoscopy was in 2019 and a tubovillous adenoma was removed.? Patient does have a positive BRCA1 and has colonoscopies every 5 years.? This is changed every 3 due to the tubovillous adenoma. ROS General General: Yes breast cancer; No weight change, appetite, fatigue, colon cancer or weakness Additional Details: Had bilateral masectomy HEENT HEENT: No difficulty swallowing, eye injury, eye surgery, swollen glands or hoarseness Endo Endocrine: Yes diabetes mellitus; No thyroid disease, thyroid cancer, Hair loss, heat intolerance or cold intolerance Skin Skin: No rash or changing moles Breast Breast: No left breast lump, right breast lump, nipple discharge, breast pain, abnormal mammogram, abnormal US or breast enlargement Musc Musculoskeletal: No back problems, arthritis, rheumatoid arthritis, gout or joint pain Cardio Cardiovascular: Yes high blood pressure; No murmur, pacemaker, heart disease, atrial fibrillation, heart attack, heart stent, palpitations, shortness of breat with exertion or chest pain Psych Psychiatric: Yes anxiety; No depression or hearing voices Resp Respiratory: No shortness of breath, No sleep apnea, No cough, No COPD, No asthma, No emphysema and No wheezing Gastro Gastrointestinal: No abdominal pain, No nausea or vomiting, No diarrhea, No constipation, No blood in stool, No acid reflux, No hemorrhoids, No ulcers, No gallbladder problem and No black,tarry stools Harris Hematologic: No blood thinners, No blood disorders, No bleeding, No anemia and No blood clots Neuro Neurologic: No system reviewed and no additional complaints, except as documented, No as per HPI, No abnormal gait, No abnormal hearing, No abnormal movements, No abnormal speech, No behavioral changes, No burning sensations, No confusion, No convulsions, No disequilibrium, No dizziness, No localized weakness, No frequent falls, No headache(s), No lack of coordination, No loss of vision, No memory loss, No numbness, No other visual disturbances, No radicular pain, No restless legs, No sensory deficit, No syncope, No tingling, No tremor(s), No weakness and No other Exam Const General: cooperative Orientation: alert and oriented x3 HENMT Head: normal to inspection Neck Neck: normal visual inspection and full ROM Chest Chest palpation & inspection: normal inspection of the chest Resp Effort & Inspection: normal respiratory effort Auscultation: clear to auscultation bilaterally Cardio Rate: regular rate Rhythm: regular rhythm GI Inspection: non-distended Palpation: soft and nontender Skin General: no rashes or lesions noted Neuro General: patient alert and patient oriented x3 Extrem General: full ROM Psych Appearance: grossly normal Mental Status: mental status grossly normal Assessment and Plan Assessment and Plan (1) History of colon polyps: ?Status:?Acute ?Plan: The patient has a history of tubovillous adenoma removed 3 years ago.? She is due for repeat colonoscopy. I explained endoscopy in detail to the patient.? I explained the risks including but not limited to stroke or heart attack with anesthesia, perforation of the GI tract, bleeding, infection.? I explained that any of these could necessitate further emergency surgery.? The patient understands and all questions were a nswered sufficiently.? The patient wishes to proceed with procedure. Drew Casas MD Pager: [facility] [address] [place] [address], [address] [place] [address] Office: I have examined the patient and the H&P has been reviewed. There are no clinical changes since date of exam.
[2022-01-13 07:36] LABS: Bedside Glucose 247 mg/dL (74-106)
--- NOTE | 2022-01-13 07:50 | OP.COLON_ITS ---
Patient Name: Mackenzie Ortiz Procedure Date: 01/13/2022 7:12 AM Date of : 1955 Age: 66 Procedure: Colonoscopy Indications: High risk colon cancer surveillance: Personal history of colonic polyps Providers: Drew Casas MD Medicines: Monitored Anesthesia Care Patient Profile: This is a 66 year old female. Refer to note in patient chart for documentation of history and physical. Last Colonoscopy: 3 years ago. Complications: No immediate complications. Procedure: Pre-Anesthesia Assessment: - Prior to the procedure, a History and Physical was performed, and patient medications and allergies were reviewed. The patient's tolerance of previous anesthesia was also reviewed. The risks and benefits of the procedure and the sedation options and risks were discussed with the patient. All questions were answered, and informed consent was obtained. Prior Anticoagulants: The patient has taken no previous anticoagulant or antiplatelet agents. After reviewing the risks and benefits, the patient was deemed in satisfactory condition to undergo the procedure. After I obtained informed consent, the scope was passed under direct vision. Throughout the procedure, the patient's blood pressure, pulse, and oxygen saturations were monitored continuously. The Colonoscope was introduced through the anus and advanced to the cecum, identified by appendiceal orifice and ileocecal valve. The colonoscopy was performed without difficulty. The patient tolerated the procedure well. The quality of the bowel preparation was good. Scope In: 7:28:27 AM Scope Withdrawal Time 0 hours 5 minutes 39 seconds Scope Out: 7:46:35 AM Total Procedure Duration Time 0 hours 18 minutes 8 seconds Findings: A medium polyp was found in the rectum. The polyp was removed with a hot snare. Resection and retrieval were complete. The exam was otherwise without abnormality on direct and retroflexion views. Impression: - One medium polyp in the rectum, removed with a hot snare. Resected and retrieved. - The examination was otherwise normal on direct and retroflexion views. Recommendation: - Discharge patient to home. - Resume previous diet. - Continue present medications. - Await pathology results. - Repeat colonoscopy in 3 years for surveillance. Procedure Code(s): --- Professional --- 00858, Colonoscopy, flexible; with removal of tumor(s), polyp(s), or other lesion(s) by snare technique Diagnosis Code(s): --- Professional --- Z86.010, Personal history of colonic polyps K62.1, Rectal polyp CPT copyright 2017 [employer] [employer]. All rights reserved. The codes documented in this report are preliminary and upon storage management consultant review may be revised to meet current compliance requirements. Drew Casas MD 01/13/2022 7:49:27 AM This report has been signed electronically. Number of Addenda: 0 Note Initiated On: 01/13/2022 7:12 AM
--- NOTE | 2022-01-13 07:50 | OP.CCLET_ITS ---
01/13/2022 Marquise Covarrubias [address] [place] [address] Re : Colonoscopy procedure for Mackenzie Ortiz Dear Dr. Covarrubias This procedure was performed on Thursday, January 13, 2022. My impressions and recommendations are as follows: Impressions : - One medium polyp in the rectum, removed with a hot snare. Resected and retrieved. - The examination was otherwise normal on direct and retroflexion views. Recommendations : - Discharge patient to home. - Resume previous diet. - Continue present medications. - Await pathology results. - Repeat colonoscopy in 3 years for surveillance. My findings are described in the full procedure note, which is enclosed. If I can be of further assistance, please feel free to contact me at Doctor phone number(s): , Work: . Sincerely, Drew Casas MD 01/13/2022 7:49:27 AM This report has been signed electronically.
== END 2022-01-13 08:43 | disposition home or self-care (01) ==
LOC: EN 06:25 → AC 06:25
PROVIDERS: PCP Family Medicine; Referring Provider Family Medicine; Visit Provider Surgery
PROC: 0DJD8ZZ Inspection of Lower Intestinal Tract, Via Natural or Artificial Opening Endoscopic (ICD-10-PCS; CPT 45378; principal; 2022-01-13 07:25)
DX: Z12.11 Encounter for screening for malignant neoplasm of colon (principal); E11.9 Type 2 diabetes mellitus without complications; D12.8 Benign neoplasm of rectum; F41.9 Anxiety disorder, unspecified; I10 Essential (primary) hypertension; E78.5 Hyperlipidemia, unspecified; K76.0 Fatty (change of) liver, not elsewhere classified; Z79.82 Long term (current) use of aspirin; Z79.899 Other long term (current) drug therapy; Z79.84 Long term (current) use of oral hypoglycemic drugs; Z87.891 Personal history of nicotine dependence; Z86.010 Personal history of colon polyps; Z86.16 Personal history of COVID-19
CPT/HCPCS: 45385; 82962; 88305; J7120; J2405

== ENCOUNTER 2022-01-20 09:46 | Outpatient (CLI) | payer MEDICARE, SELFPAY ==
[2022-01-21 12:11] LABS: Carbohydrate AG 19-9 34 U/mL (0-35)
== END 2022-01-20 23:59 | disposition home or self-care (01) ==
LOC: MTLAB 09:47
PROVIDERS: PCP Family Medicine; Referring Provider Family Medicine; Visit Provider Family Medicine
DX: R63.4 Abnormal weight loss (principal); Z15.09 Genetic susceptibility to other malignant neoplasm
CPT/HCPCS: 36415; 86301

== ENCOUNTER → 2022-01-24 | Outpatient (CLI) | payer MEDICARE, SELFPAY ==
--- NOTE | 2022-01-24 09:30 | US_ITS ---
STUDY: ABDOMINAL ULTRASOUND - RIGHT UPPER QUADRANT REASON FOR VISIT: Female, 66 years old WEIGHT LOSS, DM, ATTN PANCREAS TECHNIQUE: Ultrasound evaluation of the right upper quadrant was performed with real-time and static cho-scale imaging. TECHNICAL QUALITY: Adequate. COMPARISON: None. FINDINGS: Liver: The liver measures 16.2 cm. Increased echogenicity of the liver parenchyma due to fatty infiltration. The bile ducts are within normal limits. There is hepatic color flow. The direction of portal flow is hepatopetal. Hypoechoic irregular lesion in the right hepatic lobe measuring 2.4 x 1.6 x 1.4 cm. This is uncertain for focal fatty sparing. Gallbladder: Normal distended gallbladder. The gallbladder wall measures 0.7 mm. There is a negative sonographic Pena''s sign. There is no pericholecystic fluid. No gallstones but there is a gallbladder polyp measuring 0.5 x 0.4 x 0.4 cm. Common Bile Duct (C.B.D.): The common bile duct measures 8.9 mm. Pancreas: Suboptimal visualization due to overlying bowel gas. Right Kidney: Normal size of the right kidney. The right kidney measures 10.1 x 5.4 x 4 cm. Normal renal cortex. The right cortex measures 1.0 cm. There is no demonstrated renal mass or cyst. There is no right hydronephrosis. US/Abdomen Limited IMPRESSION: 1. Hypoechoic irregular area in the right hepatic lobe measuring 2.4 x 1.6 x 1.4 cm. This is uncertain and focal fatty sparing as there is diffuse hepatic steatosis. 2. Small GB polyp but negative sonographic Pena''s sign and no pericholecystic fluid. 3. Suboptimal visualization of pancreas due to overlying bowel gas. 4. No acute abnormality. Electronically Signed: Jackson Solano MD at 15:45 EST ,
== END | disposition home or self-care (01) ==
LOC: US 09:03
PROVIDERS: PCP Family Medicine; Visit Provider Family Medicine
DX: E11.65 Type 2 diabetes mellitus with hyperglycemia (principal); R63.4 Abnormal weight loss
CPT/HCPCS: 76705

== ENCOUNTER → 2022-02-17 | Outpatient (CLI) | payer MEDICARE, SELFPAY ==
--- NOTE | 2022-02-17 09:30 | RAD_ITS ---
PROCEDURE: Fluoroscopic guided left shoulder joint steroid injection. DATE OF EXAMINATION: 02/17/2022 INDICATION: Female, 66 years old. Left shoulder pain. PHYSICIAN: Shine Graham D.O. FLUOROSCOPY TIME (if supplied): 7 seconds IMAGES OBTAINED: 1 Spot intraoperative image obtained. CONSENT: The risks, benefits and alternatives to the procedure were explained to the patient, and the patient agreed to the procedure and signed the consent. SEDATION: None. STERILE BARRIER TECHNIQUE: The following sterile barrier precautions were used during the procedure: hand hygiene; use of IODINE aseptic prep; use of a mask, sterile gloves, and a large sterile sheet. PROCEDURE/TECHNIQUE: (All elements of maximal sterile barrier technique followed, including US elements as applicable) The risks, benefits, and alternatives to the procedure were explained to patient, and the patient agreed to the procedure and signed a consent form for the procedure. A timeout was performed to confirm the patient''s identity, the type of procedure, to be performed and the site of entry. The left shoulder joint was localized using fluoroscopy. A suitable approach was selected and the skin was marked. The surface was prepared in usual sterile fashion. 10 cc of 1% LIDOCAINE were then injected with a 25-gauge needle for local anesthetic. A 22-gauge spinal needle was then advanced into the joint capsule using periodic fluoroscopic guidance. Approximately 2 to 3 cc of 50-50 normal saline/ISOVUE-300 was injected for confirmation of intra-articular needle placement. The 2 cc KENALOG/4 cc LIDOCAINE mixture was then injected into the joint capsule. The needle was removed. There were no complications during the course of the procedure. The patient was discharged home in stable condition. RAD/Inj/Asp Syed Jt Should/Hip/Knee IMPRESSION: Successful fluoroscopic guided left shoulder joint steroid injection. Electronically Signed: Shine Graham, at 16:00 EST ,
[2022-02-17] MEDS: Lidocaine 2% (5ml sdv) 5 ML VIAL.MPF INFILT (10:20)
[2022-02-17] MEDS: Lidocaine 1% (5 ml sdv) 5 ML Vial 4 ML INFILT (10:30)
[2022-02-17] MEDS: Triamcinolone Acetonide 40 MG/ML Vial 80 MG INTRAARTIC (10:30)
[2022-02-17] MEDS: Lidocaine 2% (5ml sdv) 5 ML VIAL.MPF (10:30)
== END | disposition home or self-care (01) ==
LOC: RAD 09:27
PROVIDERS: PCP Family Medicine; Visit Provider Specialist
DX: M19.012 Primary osteoarthritis, left shoulder (principal)
CPT/HCPCS: 20610; 77002; Q9967; A4216

== ENCOUNTER → 2022-02-24 | Outpatient (CLI) | payer MEDICARE, SELFPAY ==
[2022-02-24 15:35] LABS: Hemoglobin A1c 8.5 % (3.8-5.6)
[2022-02-24 16:04] LABS: Vitamin D,25 Hydroxy 73.5 ng/mL
[2022-02-24 21:42] LABS: Ferritin 532 ng/mL (8-252)
== END | disposition home or self-care (01) ==
PROVIDERS: PCP Family Medicine; Referring Provider Family Medicine; Visit Provider Family Medicine
DX: E11.9 Type 2 diabetes mellitus without complications (principal); E55.9 Vitamin D deficiency, unspecified
CPT/HCPCS: 36415; 82306; 82728; 83036

== ENCOUNTER → 2022-06-12 | Outpatient (CLI) | payer MEDICARE, SELFPAY ==
[2022-06-12 17:58] LABS: Absolute Lymphocyte Count 3.56 X10^3/uL (0.83-4.51); Absolute Neutrophil Count 4.5 X10^3/uL (2.0-7.7); Basophil# 0.05 X10^3/uL; Basophil% 0.6 % (0-1); Eosinophil# 0.12 X10^3/uL; Eosinophils% 1.4 % (0-5); Hematocrit 46.1 % (37-47); Hemoglobin 15.2 g/dL (12.0-15.0); Lymphocyte # 3.56 X10^3/ul (0.83-4.51); Lymphocyte % 40.4 % (19-41); Mean Corpuscular Hgb 32.6 pg (27.0-32.0); Mean Corpuscular Volume 98.9 fL (81-99); Mean Platelet Vol. 9.9 fl (6.2-12.0); Monocyte# 0.59 X10^3/uL; Monocyte% 6.7 % (0-10); NRBC Flagged by Analyzer 0 % (0-5); Neutrophil # 4.48 X10^3/uL (2.7-7.7); Neutrophil % 50.7 % (47-70); Platelet Count 237 K/mm3 (150-450); RBC Distribution Width CV 12.5 % (11.6-14.6); Red Blood Count 4.66 M/mm3 (4.2-5.4); White Blood Count 8.8 K/mm3 (4.4-11.0)
[2022-06-12 18:39] LABS: ALB/GLOB Ratio 1.3 RATIO (0.9-2.4); AST(SGOT) 59 U/L (15-37); Alanine Aminotransfer ALT/SGPT 91 U/L (13-56); Albumin, Serum 3.9 g/dL (3.2-5.0); Alkaline Phosphatase 139 U/L (45-117); Anion Gap 7 (5-15); BUN 18 mg/dL (7-18); BUN/Creat Ratio 22.9 RATIO (10-20); Calcium,Total 9.7 mg/dL (8.5-10.1); Chloride 99 mmol/L (98-107); Creatinine, Serum 0.79 mg/dL (0.55-1.02); EST Glomerular Filtration Rate 78 mL/min (>60); Est Glom Filt Rate - Afr Amer 94 mL/min (>60); Globulin 3.1 g/dL (2.2-4.2); Glucose 205 mg/dL (74-106); Potassium 3.3 mmol/L (3.5-5.1); Sodium Level 134 mmol/L (136-145)
== END | disposition home or self-care (01) ==
LOC: MFPLAB 16:24 → BFHLAB 16:24
PROVIDERS: PCP Family Medicine; Visit Provider Family Medicine
DX: Z01.818 Encounter for other preprocedural examination (principal)
CPT/HCPCS: 36415; 80053; 85025

== ENCOUNTER 2022-11-15 10:36 | Emergency (ER) | payer MEDICARE, SELFPAY ==
[2022-11-15 10:38] VITALS: BP 136/70; PULSE 79; RESP 14; TEMP 35.7; O2SAT 97; BMI 29.8
--- NOTE | 2022-11-15 11:03 | ED.VIS.LOWEX ---
HPI History of Present Illness Chief Complaint: Lower Extremity Injury Informant: patient Narrative Narrative: Patient is a 67-year-old female here with right ankle pain. Patient was walking across field yesterday around noon when she rolled her ankle. She did fall to the ground however she did not sustain any other injuries or hit her head. She has had pain in her ankle since. She notes she has sprained her ankle before and also had a partial Achilles injury remotely in the past on that side. Her pain is worse along the medial aspect (posterior to the medial malleoli) but she has pain that wraps from just in front of her heel around both sides of her ankle. She did take 1 Motrin prior to arrival. She is able to walk but is painful. She states it feels better when she wears a compression on her ankle. Denies any radiation of pain. No associated numbness and tingling. No other complaints or concerns at this time. [facility] Medical History Alcohol use Anxiety Benign neoplasm of colon BRCA gene mutation positive Breast cancer, left Cardiology follow-up encounter Cervical disc disease COVID Diabetes Dietary restriction Fatty liver Former smoker History of echocardiogram History of irregular heartbeat History of stress test Hyperlipidemia Hypertension Obesity Seborrheic keratosis Skin cancer Syncope Thyroid nodule Type 2 diabetes mellitus without complications Wears contact lenses Wears glasses Home Medications aspirin 81 mg tablet,delayed release (Adult Aspirin Regimen) 81 mg PO QDAY 05/24/17 [History Last Taken Unknown] atorvastatin 20 mg tablet 20 mg PO QDAY 05/24/17 [History Last Taken Unknown] biotin 2,500 mcg capsule 2,500 mcg PO QDAY 05/24/17 [History Last Taken Unknown] buspirone 5 mg tablet 5 mg PO BID 05/24/17 [History Last Taken 01/13/22] calcium carbonate 600 mg-vitamin D3 5 mcg (200 unit) capsule (Calcium 600 + D(3)) cap PO QDAY 05/24/17 [History Last Taken Unknown] lisinopril 20 mg-hydrochlorothiazide 25 mg tablet 1 tab PO QDAY 05/24/17 [History Last Taken Unknown] lorazepam 0.5 mg tablet 0.5 mg PO Q4H PRN 05/24/17 [History Last Taken Unknown] metformin 500 mg tablet,extended release 24 hr 500 mg PO QDAY 05/24/17 [History Last Taken Unknown] benzonatate 200 mg capsule 200 mg PO TID PRN cough #90 caps 01/07/21 [Rx Last Taken Unknown] mometasone 50 mcg/actuation nasal spray 2 spray intranasal DAILY #17 grams 01/07/21 [Rx Last Taken Unknown] carvedilol 12.5 mg tablet 12.5 mg PO BID 01/06/22 [History Last Taken 01/13/22] empagliflozin 10 mg tablet (Jardiance) 10 mg PO DAILY 01/06/22 [History Last Taken Unknown] Allergy/AdvReac Type Severity Reaction Status Date / Time doxycycline Allergy Unknown Verified 11/15/22 10:36 Penicillins Allergy edema Verified 11/15/22 10:36 metoclopramide [From Reglan] AdvReac Severe hallucinations Verified 11/15/22 10:36 & agreession hydrocodone [From Vicodin] AdvReac Mild itching/arleen Verified 11/15/22 10:36 h oxycodone [From Percocet] AdvReac Mild rash/itchin Verified 11/15/22 10:36 g Sulfa (Sulfonamide AdvReac Mild Rash Verified 11/15/22 10:36 Antibiotics) tramadol AdvReac Constipatio Verified 11/15/22 10:37 n Family History Father Hypertension Parkinson's disease, Lewy body Mother Ovarian cancer Grandmother Ovarian cancer Grandfather Parkinson's disease, Lewy body Grandfather Myocardial infarction Surgical History Breast implant status H/O total hysterectomy (~1985) Hx of bilateral mastectomy Hx of colonoscopy Social History household members: spouse housing: house current occupational status: employed current occupation: [employer] pets and animals: No Smoking Status: Former smoker quit date: 02/22/06 pack-years: 16 Tobacco: How many years used: 32 second hand exposure: No alcohol intake: current alcohol intake frequency: a few times a week Alcohol type: wine substance use type: does not use ROS ROS ED Constitutional Constitutional ED: Denies chills or fever(s) Musculoskeletal Musculoskeletal: Reports other Details: right ankle pain and swelling Integumentary Denies Abrasions or rash Neurologic Neurologic: Denies paresthesias or weakness Psychiatric Psychiatric: Denies anxiety Hematologic/Lymphatic Hematologic/Lymphatic: Denies easy bleeding or easy bruising EXAM Physical Exam Const Vital Signs: 11/15/22 10:38 Temperature 96.3 F L Temperature Source Temporal Pulse Rate 79 Respiratory Rate 14 Blood Pressure 136/70 H Blood Pressure Mean 92 Pulse Ox 97 Oxygen Delivery Method Room Air Positive well nourished and well developed General Appearance ED: well developed and NAD Neck supple Chest Wall inspection of chest normal Resp normal respiratory effort Cardio regular rate and regular rhythm Cardio Narrative: 2+ Plus DP pulses Extremity Extremity Narrative: Right lower extremity: No fibular head tenderness. Compartments are soft. Normal Regan test. No significant pain with palpation along Achilles tendon. Mild tenderness palpation of the bilateral malleolus however she also has tenderness of the surrounding soft tissue. No cannot tenderness over the tarsal bones. No obvious deformity but there is some soft tissue swelling. Range of motion preserved. Patient walks with an antalgic gait. Neuro oriented x3, No moves all extremities and No no sensory deficits noted Sensorium / Orientation: alert Psych mental status grossly normal Skin no wounds Lesions: no lesions MDM MDM MDM Narrative Medical decision making narrative: Patient evaluated further right ankle injury. Will obtain an x-ray to rule out fracture. Low suspicion for more severe injury, dislocation or any vascular abnormality. Physical exam not consistent with Achilles tendon injury. Patient declined any pain medicine at this time. Neurovascularly intact with normal vital signs Three-view ankle x-ray reviewed by myself as well as radiology does not show any acute fracture or dislocation. Patient is uncertain whether she would prefer an Aircast versus compression of an Rogers wrap. We will trial an Aircast and also give her an Rogers wrap to use as needed. States she has a boot at home if she needs it. Will follow-up with her orthopedist, Dr. Juárez, as needed. Counseled on the importance of RICE therapy. Verbalized agreement understand this plan. She states she has a cane use at home. She does not feel that she needs a walker at this time. Radiography Diagnostic Testing: Clinical Impression(s) from Imaging Studies Ankle X-Ray 11/15/22 11:07 IMPRESSION: No acute osseous injury. Soft tissue swelling overlying the lateral malleolus. Electronically Signed: Torri Balbuena MD at 11:19 EDT , Discharge Plan Triage Chief Complaint: Lower Extremity Injury ED Provider: Stephanie Gill Dx/Rx/DC Orders Clinical Impression: Right ankle sprain Instructions: ED Ankle Sprain (Adult) Prescriptions: No Action aspirin [Adult Aspirin Regimen] 81 mg tablet,delayed release (DR/EC) 81 mg PO QDAY atorvastatin 20 mg tablet 20 mg PO QDAY biotin 2,500 mcg capsule 2,500 mcg PO QDAY buspirone 5 mg tablet 5 mg PO BID calcium carbonate-vitamin D3 600 mg calcium-200 unit capsule 600 mg calcium- 200 unit capsule PO QDAY lorazepam 0.5 mg tablet 0.5 mg PO Q4H PRN lisinopril-hydrochlorothiazide 20-25 mg tablet 1 tab PO QDAY metformin 500 mg tablet extended release 24 hr 500 mg PO QDAY benzonatate 200 mg capsule 200 mg PO TID PRN (Reason: cough) Qty: 90 0RF mometasone 50 mcg/actuation spray,non-aerosol 2 spray intranasal DAILY Qty: 17 6RF Rx Instructions: administer into each nostril carvedilol 12.5 mg tablet 12.5 mg PO BID Rx Instructions: must administer with a meal/food Jardiance 10 mg tablet 10 mg PO DAILY Primary Care Provider: Marquise Covarrubias Referrals: Jon Juárez DO [Med Staff - Active Staff] - 1 Week if not improving Marquise Covarrubias DO [Primary Care Provider] - Activity Restrictions/Additional Instructions: Continue to take [id number] anti-inflammatory such as ibuprofen for pain. May alternate this with Tylenol. Try to ice, elevate and rest your ankle is much as possible. As we discussed is fine for you to wear a boot if you feel you need it. If you feel that walking is becoming too difficult I do recommend using a walker. Otherwise you can continue to use a cane. Your x-ray today did not show any signs of an acute fracture/broken bone or dislocation. Disposition Disposition: Home, Self Care Discharge Date/Time: 11/15/22 12:01
--- NOTE | 2022-11-15 11:07 | RAD_ITS ---
INDICATION: Injury/Pain. Twisted ankle yesterday. EXAMINATION/TECHNIQUE: X-RAY - RIGHT XR Ankle Min 3 Views 3 VIEWS COMPARISON: No relevant prior comparison study available FINDINGS: SOFT TISSUES: There is soft tissue swelling overlying the lateral malleolus. No radiopaque foreign body. BONES/JOINTS: No acute fracture or subluxation.. Normal alignment. Preservation of the joint space.. No sclerotic or destructive changes observed. RAD/Ankle min 3 Views IMPRESSION: No acute osseous injury. Soft tissue swelling overlying the lateral malleolus. Electronically Signed: Torri Balbuena MD at 11:19 EDT ,
== END 2022-11-15 12:01 | disposition home or self-care (01) ==
LOC: ED 11:58
PROVIDERS: Emergency Provider Emergency Medicine; PCP Family Medicine; Visit Provider Emergency Medicine
DX: S93.401A Sprain of unspecified ligament of right ankle, initial encounter (principal); Z86.16 Personal history of COVID-19; Z87.891 Personal history of nicotine dependence; W19.XXXA Unspecified fall, initial encounter
CPT/HCPCS: 73610; 99282

== ENCOUNTER → 2023-01-01 | Outpatient (CLI) | payer MEDICARE, SELFPAY | END | disposition home or self-care (01) | LOC: BFHLAB 10:51 | PROVIDERS: PCP Family Medicine; Referring Provider Family Medicine; Visit Provider Family Medicine | DX: R30.0 Dysuria (principal) | CPT/HCPCS: 87077; 87086; 87088; 87186 ==

== ENCOUNTER → 2023-01-20 | Outpatient (CLI) | payer MEDICARE, SELFPAY | END | disposition home or self-care (01) | LOC: BFHLAB 13:41 → LABSPEC 13:43 | PROVIDERS: PCP Family Medicine; Visit Provider Family Medicine | DX: R35.0 Frequency of micturition (principal) | CPT/HCPCS: 87086; 87088 ==

== ENCOUNTER → 2023-01-22 | Outpatient (CLI) | payer MEDICARE, SELFPAY | END | disposition home or self-care (01) | LOC: LAB.FUTURE 13:33 | PROVIDERS: PCP Family Medicine; Visit Provider Family Medicine | DX: R35.0 Frequency of micturition (principal) | CPT/HCPCS: 87086; 87088 ==

== ENCOUNTER → 2023-04-26 | Outpatient (CLI) | payer MEDICARE, SELFPAY ==
[2023-04-26 12:52] LABS: Absolute Neutrophil Count 2.9 X10^3/uL (2.0-7.7); Basophil# 0.04 X10^3/uL; Basophil% 0.6 % (0-1); Eosinophil# 0.07 X10^3/uL; Eosinophils% 1.1 % (0-5); Hematocrit 44.9 % (37-47); Hemoglobin 14.4 g/dL (12.0-15.0); Lymphocyte % 45.6 % (19-41); Mean Corp Hgb Conc 32.1 g/dL (32-36); Mean Corpuscular Hgb 31.4 pg (27.0-32.0); Mean Corpuscular Volume 97.8 fL (81-99); Mean Platelet Vol. 10.1 fl (6.2-12.0); Monocyte# 0.53 X10^3/uL; Monocyte% 8.1 % (0-10); NRBC Flagged by Analyzer 0 % (0-5); Neutrophil # 2.93 X10^3/uL (2.7-7.7); Neutrophil % 44.4 % (47-70); Platelet Count 216 K/mm3 (150-450); RBC Distribution Width CV 12.7 % (11.6-14.6); RBC Distribution Width SD 45.1 fl (35.1-43.9); Red Blood Count 4.59 M/mm3 (4.2-5.4); White Blood Count 6.6 K/mm3 (4.4-11.0)
[2023-04-26 13:21] LABS: Vitamin D,25 Hydroxy 41.2 ng/mL
[2023-04-26 13:26] LABS: ALB/GLOB Ratio 1.3 RATIO (0.9-2.4); AST(SGOT) 22 U/L (15-37); Alanine Aminotransfer ALT/SGPT 28 U/L (13-56); Albumin, Serum 3.6 g/dL (3.2-5.0); Alkaline Phosphatase 91 U/L (45-117); Anion Gap 6 (5-15); BUN 14 mg/dL (7-18); BUN/Creat Ratio 19.5 RATIO (10-20); Calcium,Total 9.6 mg/dL (8.5-10.1); Chloride 102 mmol/L (98-107); Cholesterol 171 mg/dL (200); Creatinine, Serum 0.72 mg/dL (0.55-1.02); EST Glomerular Filtration Rate 86 mL/min (>60); Est Glom Filt Rate - Afr Amer 104 mL/min (>60); Globulin 2.8 g/dL (2.2-4.2); Glucose 137 mg/dL (74-106); High Density Lipoprotein 53 mg/dL; Potassium 3.7 mmol/L (3.5-5.1); Protein, Total 6.4 g/dL (6.4-8.2); Sodium Level 137 mmol/L (136-145); Triglycerides 349 mg/dL; Very Low Density Lipoprotein 70 mg/dL (5-40)
[2023-04-26 13:30] LABS: Hemoglobin A1c 6.4 % (3.8-5.6)
[2023-04-26 13:42] LABS: Microalbumin,Random Urine 19.7 mg/L (NO RANGE EST.); Microalbumin:Creatinine Ratio 7.3 mg/g CRE (<30 mg/g CRE)
== END | disposition home or self-care (01) ==
LOC: BFHLAB 08:57
PROVIDERS: PCP Family Medicine; Visit Provider Family Medicine
DX: E11.9 Type 2 diabetes mellitus without complications (principal); K76.0 Fatty (change of) liver, not elsewhere classified; I10 Essential (primary) hypertension; E78.5 Hyperlipidemia, unspecified; E55.9 Vitamin D deficiency, unspecified
CPT/HCPCS: 80053; 80061; 82043; 82306; 82570; 83036; 84443; 85025

== ENCOUNTER → 2023-04-27 | Outpatient (CLI) | payer MEDICARE, SELFPAY ==
--- NOTE | 2023-04-27 12:38 | MRI_ITS ---
STUDY: BILATERAL BREAST MR WITHOUT AND WITH CONTRAST REASON FOR EXAM: Female, 67 years old. History of breast cancer status post bilateral mastectomy with silicone implant placement. TECHNIQUE: Multi-sequence multi-echo imaging of both breasts was performed with a dedicated breast coil. T1-weighted and T2-weighted images were performed before the administration of contrast. T1-weighted images were also performed after the intravenous administration of 14 cc of Clariscan contrast. COMPARISON: Breast MRI dated 03/05/2021 and 02/09/2020. FINDINGS: Changes of bilateral mastectomy with subpectoral silicone implant placement, unchanged since prior study. Minimal folds in both implants without evidence of intracapsular or extracapsular rupture. No abnormal enhancing masses or areas of non-mass enhancement in the right breast. No enlarged or abnormal lymph nodes. No abnormality in the visualized regions of the chest or liver. MRI/Breast Bilateral W/O and W IMPRESSION: Changes of bilateral mastectomy with subpectoral silicone implant placement, unchanged. No intracapsular or extracapsular rupture or abnormal enhancement. Follow-up breast MRI with contrast appropriate for surveillance. CATEGORY: BIRADS Category 2: Benign. A letter regarding these results will be sent to the patient by the facility within 30 days. Electronically Signed: Gerald Chery MD at 13:17 EST ,
== END | disposition home or self-care (01) ==
LOC: MRI 12:33
PROVIDERS: PCP Family Medicine; Referring Provider Obstetrics & Gynecology; Visit Provider Obstetrics & Gynecology
DX: Z08 Encounter for follow-up examination after completed treatment for malignant neoplasm (principal); Z85.3 Personal history of malignant neoplasm of breast; Z90.13 Acquired absence of bilateral breasts and nipples; Z15.01 Genetic susceptibility to malignant neoplasm of breast; Z15.09 Genetic susceptibility to other malignant neoplasm
CPT/HCPCS: 77049; A9575; A4216; C8908

== ENCOUNTER → 2023-10-15 | Outpatient (CLI) | payer MEDICARE, SELFPAY ==
[2023-10-15 10:34] LABS: Absolute Lymphocyte Count 2.84 X10^3/uL (0.83-4.51); Absolute Neutrophil Count 3.2 X10^3/uL (2.0-7.7); Basophil# 0.04 X10^3/uL; Basophil% 0.6 % (0-1); Eosinophil# 0.08 X10^3/uL; Eosinophils% 1.2 % (0-5); Hematocrit 44.5 % (37-47); Hemoglobin 14.5 g/dL (12.0-15.0); Lymphocyte # 2.84 X10^3/ul (0.83-4.51); Lymphocyte % 42.5 % (19-41); Mean Corp Hgb Conc 32.6 g/dL (32-36); Mean Corpuscular Hgb 31.8 pg (27.0-32.0); Mean Corpuscular Volume 97.6 fL (81-99); Monocyte# 0.48 X10^3/uL; Monocyte% 7.2 % (0-10); NRBC Flagged by Analyzer 0 % (0-5); Neutrophil # 3.22 X10^3/uL (2.7-7.7); Neutrophil % 48.2 % (47-70); Platelet Count 190 K/mm3 (150-450); RBC Distribution Width CV 12.6 % (11.6-14.6); RBC Distribution Width SD 44.6 fl (35.1-43.9); Red Blood Count 4.56 M/mm3 (4.2-5.4); White Blood Count 6.7 K/mm3 (4.4-11.0)
[2023-10-15 10:50] LABS: Vitamin D,25 Hydroxy 38.6 ng/mL
[2023-10-15 10:58] LABS: ALB/GLOB Ratio 1.2 RATIO (0.9-2.4); AST(SGOT) 27 U/L (15-37); Alanine Aminotransfer ALT/SGPT 41 U/L (13-56); Albumin, Serum 3.5 g/dL (3.2-5.0); Alkaline Phosphatase 106 U/L (45-117); Anion Gap 6 (5-15); BUN 10 mg/dL (7-18); BUN/Creat Ratio 13.5 RATIO (10-20); Calcium,Total 9.2 mg/dL (8.5-10.1); Chloride 103 mmol/L (98-107); Cholesterol 179 mg/dL (200); Creatinine, Serum 0.74 mg/dL (0.55-1.02); EST Glomerular Filtration Rate 83 mL/min (>60); Est Glom Filt Rate - Afr Amer 101 mL/min (>60); Globulin 2.9 g/dL (2.2-4.2); Glucose 148 mg/dL (74-106); High Density Lipoprotein 45 mg/dL; Potassium 4.1 mmol/L (3.5-5.1); Protein, Total 6.4 g/dL (6.4-8.2); Sodium Level 139 mmol/L (136-145); Triglycerides 453 mg/dL
[2023-10-15 10:59] LABS: Hemoglobin A1c 5.8 % (3.8-5.6)
== END | disposition home or self-care (01) ==
LOC: MTLAB 08:37
PROVIDERS: PCP Family Medicine; Referring Provider Family Medicine; Visit Provider Family Medicine
DX: E11.9 Type 2 diabetes mellitus without complications (principal); E55.9 Vitamin D deficiency, unspecified; I10 Essential (primary) hypertension
CPT/HCPCS: 36415; 80053; 80061; 82306; 83036; 85025

== ENCOUNTER → 2024-03-02 | Outpatient (CLI) | payer MEDICARE, SELFPAY | END | disposition home or self-care (01) | PROVIDERS: PCP Family Medicine; Referring Provider Family Medicine; Visit Provider Family Medicine | DX: N39.0 Urinary tract infection, site not specified (principal) | CPT/HCPCS: 87086 ==

== ENCOUNTER → 2024-05-10 | Outpatient (CLI) | payer MEDICARE, SELFPAY ==
[2024-05-10 12:43] LABS: Hemoglobin A1c 6.6 % (<=5.6)
[2024-05-10 13:01] LABS: ALB/GLOB Ratio 1.9 RATIO (0.9-2.4); AST(SGOT) 50 U/L (<=31); Alanine Aminotransfer ALT/SGPT 48 U/L (<=34); Albumin, Serum 4.5 g/dL (3.4-4.8); Alkaline Phosphatase 97 U/L (35-104); Anion Gap 12 (5-15); BUN 13 mg/dL (4-19); BUN/Creat Ratio 17.3 RATIO (10-20); Calcium,Total 10.7 mg/dL (7.6-11.0); Carbon Dioxide 28.3 mmol/L (21.0-32.0); Chloride 98 mmol/L (98-108); Cholesterol 205 mg/dL (<=200); Creatinine, Serum 0.75 mg/dL (0.70-1.20); EST Glomerular Filtration Rate 88 (>60); Globulin 2.4 g/dL (2.2-4.2); Glucose 121 mg/dL (70-99); High Density Lipoprotein 54 mg/dL; Low Density Lipoprotein Calc. 72 mg/dL; Sodium Level 138 mmol/L (133-145); Total Bilirubin 0.48 mg/dL (0.00-1.30); Triglycerides 394 mg/dL; Very Low Density Lipoprotein 79 mg/dL (5-40); cholesterol:hdl ratio screen 3.79
[2024-05-10 18:30] LABS: Microalbumin,Random Urine < 12.0 mg/L (NO RANGE EST.)
[2024-05-10 18:57] LABS: Microalbumin:Creatinine Ratio UNABLE TO CALCULATE mg/g CRE
== END | disposition home or self-care (01) ==
LOC: BFHLAB 10:21
PROVIDERS: PCP Family Medicine; Visit Provider Family Medicine
DX: E11.9 Type 2 diabetes mellitus without complications (principal); K76.0 Fatty (change of) liver, not elsewhere classified; I10 Essential (primary) hypertension; E78.5 Hyperlipidemia, unspecified
CPT/HCPCS: 36415; 80053; 80061; 82043; 82570; 83036; 84443

== ENCOUNTER → 2024-05-29 | Outpatient (CLI) | payer MEDICARE, SELFPAY ==
--- NOTE | 2024-05-29 12:42 | CDU_ITS ---
Reason For Study Reason For Study: Carotid stenosis Rt. Velocities/BP Lt. Velocities/BP Prox CCA 91.9/15.4 cm/sec. Prox CCA 98.1/19 cm/sec. Mid CCA 86.3/17.3 cm/sec. Mid CCA 93.8/20.1 cm/sec. Dist CCA 86.3/19.2 cm/sec. Dist CCA 75.1/16.8 cm/sec. Prox ICA 58.9/15.4 cm/sec. Prox ICA 68.5/15.7 cm/sec. Mid ICA 73.7/20.1 cm/sec. Mid ICA 97.4/32.3 cm/sec. Dist ICA 97.4/26.2 cm/sec. Dist ICA 119.2/33.6 cm/sec. Rt. ICA/CCA = 1.13. Lt. ICA/CCA = 1.27. Prox ECA 101.4/12.4 cm/sec. Prox ECA 89.4/11.3 cm/sec. Rt. Vert. 29.1/8.1 cm/sec. Lt. Vert. 49.4/12.6 cm/sec. Right Extracranial There is intimal thickening but no significant atherosclerotic plaque noted in the right common carotid artery. There is intimal thickening but no significant atherosclerotic plaque noted in the right internal carotid artery. The right internal carotid artery is very tortuous. There is intimal thickening but no significant atherosclerotic plaque noted in the right external carotid artery. Antegrade flow is noted in the right vertebral artery. Left Extracranial There is intimal thickening but no significant atherosclerotic plaque noted in the left common carotid artery. There is intimal thickening but no significant atherosclerotic plaque noted in the left internal carotid artery. The left internal carotid artery is very tortuous. There is intimal thickening but no significant atherosclerotic plaque noted in the left external carotid artery. Antegrade flow is noted in the left vertebral artery. Procedure Carotid Duplex [id number]. This is a Carotid Duplex examination using B-mode, color flow and specral Doppler. Exam performed in department. VL/Carotid Duplex Ultrasound Interpretation Summary No significant atherosclerotic plaque or stenosis noted in the internal carotid arteries bilaterally. Flow within the vertebral arteries is antegrade bilaterally. Ordering Physician: Marquise Covarrubias Referring Physician: Marquise Covarrubias Performed By: Aliza Brown RVT
== END | disposition home or self-care (01) ==
PROVIDERS: PCP Family Medicine; Referring Provider Family Medicine; Visit Provider Family Medicine
DX: I65.23 Occlusion and stenosis of bilateral carotid arteries (principal)
CPT/HCPCS: 93880

== ENCOUNTER → 2024-05-31 | Outpatient (CLI) | payer MEDICARE, SELFPAY ==
[2024-06-05 17:07] LABS: Acetylcholine Receptor Binding < 0.07 nmol/L (0.00-0.24)
== END | disposition home or self-care (01) ==
PROVIDERS: PCP Family Medicine; Referring Provider Ophthalmology; Visit Provider Ophthalmology
DX: H50.05 Alternating esotropia (principal)
CPT/HCPCS: 36415; 84238

== ENCOUNTER 2024-12-15 06:34 | Day surgery (SDC) | payer MEDICARE, SELFPAY ==
[2024-12-15] VITALS (10 sets, daily range): BP systolic 83–149; BP diastolic 38–68; PULSE 16–70; RESP 16; TEMP 36.1–36.8; O2SAT 93–97; BMI 26.1
[2024-12-15] MEDS: Lactated Ringers 1,000 ML 15 ML IV (07:03)
--- NOTE | 2024-12-15 07:23 | H&P.OPEN ---
HPI - General HPI Narrative HARLAN HERRING, is a 69 F who presents for surveillance colonoscopy. Her last colonoscopy was in 2021 and a tubovillous adenoma was removed. She denies abdominal pain or blood in the stool. [facility] Medical History Cellulitis Cardiology follow-up encounter Cervical disc disease Wears glasses Wears contact lenses Alcohol use Diabetes Fatty liver Syncope Dietary restriction COVID Former smoker History of echocardiogram History of stress test History of irregular heartbeat Skin cancer Obesity Breast cancer, left BRCA gene mutation positive Seborrheic keratosis Anxiety Thyroid nodule Benign neoplasm of colon Hypertension Hyperlipidemia Type 2 diabetes mellitus without complications Home Medications Medication Instructions Recorded Last Taken Type aspirin 81 mg tablet,delayed 81 mg PO QDAY 05/24/17 12/09/24 History release (Adult Aspirin Regimen) atorvastatin 20 mg tablet 20 mg PO QDAY 05/24/17 12/15/24 History buspirone 5 mg tablet 5 mg PO BID 05/24/17 12/15/24 History calcium 600 mg (as 1 cap PO QDAY 05/24/17 12/14/24 History carbonate)-vitamin D3 5 mcg (200 unit) capsule (Calcium 600 + D(3)) lisinopril 20 1 tab PO QDAY 05/24/17 12/14/24 History mg-hydrochlorothiazide 25 mg tablet lorazepam 0.5 mg tablet 0.5 mg PO Q4H PRN anxiety 05/24/17 12/15/24 History 0.25 mg carvedilol 12.5 mg tablet 12.5 mg PO BID 01/06/22 12/15/24 History empagliflozin 10 mg tablet 10 mg PO DAILY 01/06/22 12/11/24 History (Jardiance) tirzepatide 5 mg/0.5 mL 5 mg subcut QWEEK 04/12/23 12/03/24 History subcutaneous pen injector (Mounjaro) diazepam 5 mg tablet 5 mg PO BID PRN PRN anxiety 11/28/24 12/15/24 History multivitamin with minerals-folic 1 tab PO DAILY 12/15/24 12/14/24 History acid 0.4 mg tablet (One-A-Day Women's 50 Plus) Allergy/AdvReac Type Severity Reaction Status Date / Time doxycycline Allergy Unknown Verified 12/15/24 06:51 Penicillins Allergy edema Verified 12/15/24 06:51 metoclopramide (From Reglan) AdvReac Severe hallucinations Verified 12/15/24 06:51 & agreession hydrocodone (From Vicodin) AdvReac Mild itching/arleen Verified 12/15/24 06:51 h oxycodone (From Percocet) AdvReac Mild rash/itchin Verified 12/15/24 06:51 g Sulfa (Sulfonamide AdvReac Mild Rash Verified 12/15/24 06:51 Antibiotics) tramadol AdvReac Constipatio Verified 12/15/24 06:51 n Family History Father Hypertension Parkinson's disease, Lewy body Mother , at 48 Ovarian cancer Grandmother , at 62 Ovarian cancer Grandfather Parkinson's disease, Lewy body Grandfather Myocardial infarction Daughter Breast cancer, Onset Age: 37 BRCA+ - stage 0 Surgical History H/O rotator cuff surgery Hx of colonoscopy Breast implant status Hx of bilateral mastectomy H/O total hysterectomy (~1985) Social History household members: spouse housing: house number of children: 2 current occupational status: retired pets and animals: No Smoking Status: Former smoker quit date: 02/22/06 pack-years: 16 Tobacco: How many years used: 32 second hand exposure: No alcohol intake: current alcohol intake frequency: a few times a week Alcohol type: wine substance use type: does not use Past Medical/Surgical History Planned Operation Planned Operative Procedure(s): Colonoscopy - Open Acces Previous Hospitalizations/Surgeries HX Hospitalizations: No Any Problems With Anesthesia: Yes (HAD DOV IN THE PAST-MADE HER AGGRESSIVE) You/Your Family Experience Fever (Hyperthermia) With Anes: No Cholinesterase deficiency: No Cardiovascular Hx Hypertension: Yes (ON MEDS) Respiratory Hx Sleep Apnea: No Hx Respiratory Tract Infection/Cold (presently): No Do You Snore Loudly (louder than talking or can be heard): No Do You Often Feel Tired/ Fatigued/ Sleepy Dring Daytime?: No Has Anyone Observed You Stop Breathing During Sleep?: No Result (for STOP score): Negative Smoking Status: Former smoker Neurological Does patient have nerve stimulator: No Reproduction : No Miscellaneous Recent Exposure to Contagious Disease: No Allergies doxycycline Allergy (Verified 12/15/24 06:51) Unknown Penicillins Allergy (Verified 12/15/24 06:51) edema metoclopramide (From Reglan) Adverse Reaction (Severe, Verified 12/15/24 06:51) hallucinations & agreession hydrocodone (From Vicodin) Adverse Reaction (Mild, Verified 12/15/24 06:51) itching/rash oxycodone (From Percocet) Adverse Reaction (Mild, Verified 12/15/24 06:51) rash/itching Sulfa (Sulfonamide Antibiotics) Adverse Reaction (Mild, Verified 12/15/24 06:51) Rash tramadol Adverse Reaction (Verified 12/15/24 06:51) Constipation Discharge Is Pt Admitted From a Jail, or a Longterm: No After D/C, Where Do you Plan to Go: Return Home Vital Signs Vital Signs Vital Signs: 12/15/24 06:55 12/15/24 06:57 Temperature 97.0 F L Temperature Source Temporal Pulse Rate 70 Respiratory Rate 16 Respiratory Pattern Normal Blood Pressure 149/64 H Blood Pressure Mean 92 Blood Pressure Source Monitor Blood Pressure Position Semi-Fowlers Blood Pressure Location Right Arm Pulse Ox 97 Oxygen Delivery Method Room Air Weight Weight: 161 lb 12.8 oz Body Mass Index (BMI) 26.1 Physical Exam Const alert and oriented x3 HEENT normocephalic Eyes PERRL Resp normal respiratory effort and normal air movement Cardio regular rate and regular rhythm GI soft to palpation, non-tender and non-distended Extremity normal to inspection Assessment & Plan Assessment/Plan (1) History of colon polyps: PLAN: I explained endoscopy in detail to the patient. I explained the risks including but not limited to stroke or heart attack with anesthesia, perforation of the GI tract, bleeding, infection. I explained that any of these could necessitate further emergency surgery. The patient understands and all questions were answered sufficiently. The patient wishes to proceed with procedure. Drew Casas MD Pager: [facility] [address] [place] [address], [address] [place] [address] Office: Surgery Risks - Colonoscopy Risks Include but are not Limited To: Risks include but are not limited to: Bleeding, perforation requiring further surgery, inability to complete colonoscopy requiring barium enema.
--- NOTE | 2024-12-15 07:24 | PCM.PRE.AN2 ---
ASA Classification* ASA Classification ASA Classification: 2 Assessment & Plan Anesthesia* Anesthesia Assessment Anesthesia Assessment: Discussed sedation and/or anesthesia options, risks, benefits, and alternatives with patient/parents/legal guardian/POA. Questions invited. The patient/parents/legal guardian/POA seems to understand and agrees to proceed with anesthesia plan. Reviewed the physical assessment, medical history, allergy history and patient home medications list prior to surgery/procedure/anesthetic and documented any changes. Performed airway and anesthesia risk assessments. Anesthesia Type Anesthesia Type: MAC History Source History Obtained from:: Patient and Chart Anesthesia Focused Assessment* Temperature: 97.0 F Pulse Rate: 70 Blood Pressure: 149/64 Respiratory Rate: 16 Pulse Ox: 97 Oxygen Delivery Method: Room Air Airway Assessment Mouth opens: >3 cm Mallampati Score: II Teeth Condition: Caps/Crowns (Patient has several crowns. They are all tight.) Neck Range of motion (ROM): Limited ROM (Severe Restriction) Labs Anesthesia Preop lab: CBC WBC, (4.4-11.0) 6.7 K/mm3 10/15/23, 08:40 RBC, (4.2-5.4) 4.56 M/mm3 10/15/23, 08:40 Hgb, (12.0-15.0) 14.5 g/dL 10/15/23, 08:40 Hct, (37-47) 44.5 % 10/15/23, 08:40 Plt Count, (150-450) 190 K/mm3 10/15/23, 08:40 CHEMISTRY Potassium, (3.3-5.1) 4.0 mmol/L 05/10/24, 10:21 Sodium, (133-145) 138 mmol/L 05/10/24, 10:21 BUN, (4-19) 13 mg/dL 05/10/24, 10:21 Creatinine, (0.70-1.20) 0.75 mg/dL 05/10/24, 10:21 Glucose, (70-99) 121 mg/dL H 05/10/24, 10:21 POC Glucose, (74-106) 177 mg/dL H Today, 06:53 TSH, (0.300-4.200) 1.420 uIU/mL 05/10/24, 10:21 COAG Pre-Assessment Diagnosis/Proposed Procedure Planned Operative Procedure(s): Colonoscopy - Open Acces Anesthesia History Anesthesia History - supervisor partial denture department: Anesthesia History - supervisor partial denture department Hx Hospitalization No 01/08/22 13:47 Any Problems With Anesthesia Yes: HAD REGLAN IN THE PAST- 11/28/24 10:17 MADE HER AGGRESSIVE Cholinesterase deficiency No 11/28/24 10:17 You/Your Family Experience No 11/28/24 10:17 fever (hyperthermia) with Relationship Recent Exposure to Contagious No 12/15/24 06:55 Disease Does patient have nerve No 11/28/24 10:17 stimulator Patient instructed to have device shut off --Does patient have Pacemaker No 12/15/24 06:57 or ICD? When Was Last Pacemaker Check QUESTION #4 FULL TEXT: You/Your Family Experience fever (hyperthermia) with Anesthesia Last Oral Intake Last Oral intake: Last Oral Intake NPO since 22:00 12/15/24 06:57 Meds taken in AM with sips of Yes 12/15/24 06:57 water? Meds patient instructed to take am of surgery Any additional information?: Yes Meds taken in AM with sips of water?: Yes PONV PONV - supervisor partial denture department: PONV - supervisor partial denture department Female Yes 11/28/24 10:17 HX of Motion Sickness Yes 11/28/24 10:17 HX of N/V After Surgery No 11/28/24 10:17 Non-Smoker Yes 11/28/24 10:17 Duration of Surgery greater No 11/28/24 10:17 than 60 minutes Number of Risk Factors 3 11/28/24 10:17 PONV Score Moderate Risk 11/28/24 10:17 Height & Weight Height & Weight: Anesthesia: Height & Weight Height 5 ft 6 in 12/15/24 06:57 Weight: 73.391 kg 12/15/24 06:57 Body Mass Index (BMI) 26.1 12/15/24 06:57 Respiratory Assessment Respiratory Assessment - supervisor partial denture department: Respiratory Tract Infection Hx - supervisor partial denture department Hx Respiratory Tract Infection No 11/28/24 10:17 STOP Sleep Apnea STOP Sleep Apnea - supervisor partial denture department: STOP Sleep Apnea - supervisor partial denture department Hx Hypertension Yes: ON MEDS 11/28/24 10:17 Hx Sleep Apnea No 11/28/24 10:17 CPAP BIPAP Do you snore loudly (louder No 11/28/24 10:17 than talking or can be heard Do you often feel tired/ No 11/28/24 10:17 fatigued/ sleepy during daytime? Has anyone observed you stop No 11/28/24 10:17 breathing during sleep? STOP Results Negative 11/28/24 10:17 QUESTION #5 FULL TEXT : Do you snore loudly (louder than talking or can be heard through closed doors)? Tobacco Use History Tobacco Use History - supervisor partial denture department: Tobacco Use History - supervisor partial denture department Tobacco Use Smoking Status Former smoker 11/28/24 10:17 Hx Tobacco Use No 11/28/24 10:17 Years Smoking Packs Smoked per Day Smoking Cessation Date was No - quit smoking greater 11/28/24 10:17 within the last 15 years than 15 years ago Hx Smoking Cessation Date 02/22/06 11/28/24 10:17 Hx Smoking Cessation No 11/28/24 10:17 Counseling Hematologic Medial History Hematologic Hx - supervisor partial denture department: Hematologic Medical Hx - detail manager Hx of Blood Transfusion No 11/28/24 10:17 Hx of Transfusion in last 3 No 11/28/24 10:17 Months Date of Last Transfusion (if within last 3 months) Ever experience any problems No 11/28/24 10:17 with transfusion(s)? Specify any problems Hx of Preganancy in last 3 No 11/28/24 10:17 Months Nurse Filling Out Transfusion JAVIER 11/28/24 10:17 & Questions: Date: 11/28/24 11/28/24 10:17 Time: 10:20 11/28/24 10:17 Patient unable to answer at this time (ie. confused, unrespo /Reproduction History /Reproductive History - supervisor partial denture department: /Reproductive Hx- supervisor partial denture department Hx Now No 11/28/24 10:17 Gestational Age (in weeks): EDC: Hx Hx Para Hx Section SAB No 11/28/24 10:17 Active Medications Active Medications: Current Medications Generic Name Dose Route Start Last Admin Trade Name Freq PRN Reason Stop Dose Admin Lactated Ringer's 1,000 mls @ 15 mls/hr 12/15/24 07:15 12/15/24 07:03 IV 15 mls/hr .Q48H RIA Administration PFSH Medical History Marijuana use Cellulitis Cardiology follow-up encounter Cervical disc disease Wears glasses Wears contact lenses Alcohol use Diabetes Fatty liver Syncope Dietary restriction COVID Former smoker History of echocardiogram History of stress test History of irregular heartbeat Skin cancer Obesity Breast cancer, left BRCA gene mutation positive Seborrheic keratosis Anxiety Thyroid nodule Benign neoplasm of colon Hypertension Hyperlipidemia Type 2 diabetes mellitus without complications Home Medications Medication Instructions Recorded Last Taken Type aspirin 81 mg tablet,delayed 81 mg PO QDAY 05/24/17 12/09/24 History release (Adult Aspirin Regimen) atorvastatin 20 mg tablet 20 mg PO QDAY 05/24/17 12/15/24 History buspirone 5 mg tablet 5 mg PO BID 05/24/17 12/15/24 History calcium 600 mg (as 1 cap PO QDAY 05/24/17 12/14/24 History carbonate)-vitamin D3 5 mcg (200 unit) capsule (Calcium 600 + D(3)) lisinopril 20 1 tab PO QDAY 05/24/17 12/14/24 History mg-hydrochlorothiazide 25 mg tablet lorazepam 0.5 mg tablet 0.5 mg PO Q4H PRN anxiety 05/24/17 12/15/24 History 0.25 mg carvedilol 12.5 mg tablet 12.5 mg PO BID 01/06/22 12/15/24 History empagliflozin 10 mg tablet 10 mg PO DAILY 01/06/22 12/11/24 History (Jardiance) tirzepatide 5 mg/0.5 mL 5 mg subcut QWEEK 04/12/23 12/03/24 History subcutaneous pen injector (Mounjaro) diazepam 5 mg tablet 5 mg PO BID PRN PRN anxiety 11/28/24 12/14/24 History multivitamin with minerals-folic 1 tab PO DAILY 12/15/24 12/14/24 History acid 0.4 mg tablet (One-A-Day Women's 50 Plus) Allergy/AdvReac Type Severity Reaction Status Date / Time doxycycline Allergy Unknown Verified 12/15/24 06:51 Penicillins Allergy edema Verified 12/15/24 06:51 metoclopramide (From Reglan) AdvReac Severe hallucinations Verified 12/15/24 06:51 & agreession hydrocodone (From Vicodin) AdvReac Mild itching/arleen Verified 12/15/24 06:51 h oxycodone (From Percocet) AdvReac Mild rash/itchin Verified 12/15/24 06:51 g Sulfa (Sulfonamide AdvReac Mild Rash Verified 12/15/24 06:51 Antibiotics) tramadol AdvReac Constipatio Verified 12/15/24 06:51 n Family History Father Hypertension Parkinson's disease, Lewy body Mother , at 48 Ovarian cancer Grandmother , at 62 Ovarian cancer Grandfather Parkinson's disease, Lewy body Grandfather Myocardial infarction Daughter Breast cancer, Onset Age: 37 BRCA+ - stage 0 Surgical History H/O rotator cuff surgery Hx of colonoscopy Breast implant status Hx of bilateral mastectomy H/O total hysterectomy (~1985) Social History household members: spouse housing: house number of children: 2 current occupational status: retired pets and animals: No Smoking Status: Former smoker quit date: 02/22/06 pack-years: 16 Tobacco: How many years used: 32 second hand exposure: No alcohol intake: current alcohol intake frequency: a few times a week Alcohol type: wine substance use type: does not use Review of Systems (Anesthesia) ROS Narrative System reviewed and no additional complaints, except as documented.
--- NOTE | 2024-12-15 07:30 | COLBX_PTH ---
PATIENT: HARLAN HERRING LOC: EN U#:[id number] AGE/SX: 69/F ROOM: RE12/15/[address]: Dr. Drew Casas MD : 1955 BED: DIS: 12/15/2024 SPEC #: [id number] RECD: 12/15/24 10:49 STATUS: DILAN REPetr #: [id number] JULIO CESAR: 12/15/24 07:[address]: Drwe Casas DEPT: SURGICAL PATHOLOGY RECD BY: Mikey Navarrete ENTERED: 12/15/24 12:21 SP TYPE: COLON BX OTHR DR: Dr. Marquise Covarrubias, DO Tissues: A - Cecum, NOS Procedures: Surgery Specimen Level IV HEADER OPERATION: Colonoscopy, polypectomy PRE-OP DIAGNOSIS: History of colon polyps TISSUE SUBMITTED: A- Cecal polyp MICROSCOPIC DIAGNOSIS A. Cecum, polyp, biopsy: - Tubular adenoma. MICROSCOPIC DESCRIPTION Slides are reviewed. GROSS DESCRIPTION A. Received in fixative is one container labeled with the patient's name and designated "Cecal polyp." The specimen consists of two irregular fragments of yen tissue, each measuring 0.3 cm. The specimen is totally submitted in one cassette. AL 12/15/2024 CPT:89094 ADDENDUM ADDENDUM ADDENDUM ADDENDUM ADDENDUM ADDENDUM ADDENDUM ADDENDUM 12/29/2024 13:49 ADDENDUM 12/29/2024 13:49 ADDENDUM 12/29/2024 13:49 ADDENDUM 12/29/2024 13:49 ADDENDUM 12/29/2024 13:49 This is an amended report: Surgery updated the Pre-op diagnosis for this patient. Surgery sent down a new form with corrected Pre-op diagnosis per office. Pre-op diagnosis was "Epigastric pain, GERD" and is now changed to "History of colon polyps".
--- NOTE | 2024-12-15 08:17 | OP.COLON_ITS ---
Patient Name: Mackenzie Ortiz Procedure Date: 12/15/2024 7:45 AM Date of : 1955 Age: 69 Procedure: Colonoscopy Indications: High risk colon cancer surveillance: Personal history of colonic polyps Providers: Drew Casas MD Referring MD: Marquise Covarrubias Medicines: Propofol per Anesthesia Patient Profile: This is a 69 year old female. Refer to note in patient chart for documentation of history and physical. Last Colonoscopy: 3 years ago. Complications: No immediate complications. Estimated blood loss: Minimal. Procedure: Pre-Anesthesia Assessment: - Prior to the procedure, a History and Physical was performed, and patient medications and allergies were reviewed. The patient's tolerance of previous anesthesia was also reviewed. The risks and benefits of the procedure and the sedation options and risks were discussed with the patient. All questions were answered, and informed consent was obtained. Prior Anticoagulants: The patient has taken no anticoagulant or antiplatelet agents. After reviewing the risks and benefits, the patient was deemed in satisfactory condition to undergo the procedure. After I obtained informed consent, the scope was passed under direct vision. Throughout the procedure, the patient's blood pressure, pulse, and oxygen saturations were monitored continuously. The Colonoscope was introduced through the anus and advanced to the cecum, identified by appendiceal orifice and ileocecal valve. The colonoscopy was performed without difficulty. The patient tolerated the procedure well. The quality of the bowel preparation was good. The ileocecal valve, appendiceal orifice, and rectum were photographed. Scope In: 7:59:59 AM Scope Withdrawal Time 0 hours 5 minutes 59 seconds Scope Out: 8:14:37 AM Total Procedure Duration Time 0 hours 14 minutes 38 seconds Findings: The entire examined colon appeared normal on direct and retroflexion views. A medium polyp was found in the cecum. The polyp was removed with a hot snare. Resection and retrieval were complete. Impression: - The entire examined colon is normal on direct and retroflexion views. - One medium polyp in the cecum, removed with a hot snare. Resected and retrieved. Recommendation: - Discharge patient to home. - Resume previous diet. - Continue present medications. - Await pathology results. - Repeat colonoscopy in 5 years for surveillance. Procedure Code(s): --- Professional --- 61173, Colonoscopy, flexible; with removal of tumor(s), polyp(s), or other lesion(s) by snare technique Diagnosis Code(s): --- Professional --- Z86.010, Personal history of colonic polyps D12.0, Benign neoplasm of cecum CPT copyright 2021 [employer]. All rights reserved. The codes documented in this report are preliminary and upon beef trimmer review may be revised to meet current compliance requirements. Drew Casas MD 12/15/2024 8:16:44 AM This report has been signed electronically. Number of Addenda: 0 Note Initiated On: 12/15/2024 7:45 AM
--- NOTE | 2024-12-15 08:17 | OP.PROVAT_ITS ---
12/15/2024 Marquise Covarrubias [address] [place] [address] Re : Colonoscopy procedure for Mackenzie Ortiz Dear Dr. Covarrubias This procedure was performed on Sunday, December 15, 2024. My impressions and recommendations are as follows: Impressions : - The entire examined colon is normal on direct and retroflexion views. - One medium polyp in the cecum, removed with a hot snare. Resected and retrieved. Recommendations : - Discharge patient to home. - Resume previous diet. - Continue present medications. - Await pathology results. - Repeat colonoscopy in 5 years for surveillance. My findings are described in the full procedure note, which is enclosed. If I can be of further assistance, please feel free to contact me at Doctor phone number(s): , Work: . Sincerely, Drew Casas MD 12/15/2024 8:16:44 AM This report has been signed electronically.
--- NOTE | 2024-12-15 08:27 | PCM.POST.ANE ---
Anesthesia: Postop Eval I Current Vital Signs Temperature: 98.3 F Pulse Rate: 16 Blood Pressure: 83/38 Respiratory Rate: 16 Pulse Ox: 97 Oxygen Delivery Method: Room Air Assessment Airway patent: Yes Spontaneous unlabored respirations: Yes Mental status: Awake and Calm nausea: No Vomiting: No Anesthesia Complication: No Fluid Hydration Crystalloid volume administer (ml): 500 Total IV fluid infused: 500 Progress Note Anesthesia document: Postop Eval 1 completed: Yes
--- NOTE | 2024-12-15 12:00 | PCM.POSTANE2 ---
Anesthesia Postop Eval I Sum Postop Eval Completion status Anesthesia document: Postop Eval 1 completed: Yes Anesthesia Postop Eval I Summary Anesthesia Postop Eval I Summary: Anesthesia Postop Eval I: Assessment Summary Airway patent Yes 12/15/24 08:28 [email or web address] Spontaneous unlabored Yes 12/15/24 08:28 [email or web address] respirations Mental status Awake,Calm 12/15/24 08:28 [email or web address] nausea No 12/15/24 08:28 [email or web address] Vomiting No 12/15/24 08:28 [email or web address] Anesthesia Postop Eval I: Fluid Summary Crystalloid volume administer 500 12/15/24 08:28 [email or web address] (ml) Colloids volume administered ( ml) Blood Product volume administered (ml) Total IV fluid infused 500 12/15/24 08:28 [email or web address] Anesthesia Postop Eval I: Summary Notes Anesthesia Complication No 12/15/24 08:28 [email or web address] Anesthesia Complication Comment: Post-operative progress note Anesthesia: Postop Eval II Evaluation Mental status: Awake Pain Level: 0 nausea: No Vomiting: No
== END 2024-12-15 09:06 | disposition home or self-care (01) ==
LOC: EN 06:34 → AC 06:35
PROVIDERS: PCP Family Medicine; Referring Provider Family Medicine; Visit Provider Surgery
PROC: 0DJD8ZZ Inspection of Lower Intestinal Tract, Via Natural or Artificial Opening Endoscopic (ICD-10-PCS; CPT 45378; principal; 2024-12-15 07:25)
DX: Z12.11 Encounter for screening for malignant neoplasm of colon (principal); E11.9 Type 2 diabetes mellitus without complications; D12.0 Benign neoplasm of cecum; Z87.891 Personal history of nicotine dependence; Z79.85 Long-term (current) use of injectable non-insulin antidiabetic drugs; Z79.84 Long term (current) use of oral hypoglycemic drugs; Z86.0100 Personal history of colon polyps, unspecified; E78.5 Hyperlipidemia, unspecified; I10 Essential (primary) hypertension; Z85.828 Personal history of other malignant neoplasm of skin; Z85.3 Personal history of malignant neoplasm of breast; Z79.82 Long term (current) use of aspirin; Z79.899 Other long term (current) drug therapy; F41.9 Anxiety disorder, unspecified; Z90.13 Acquired absence of bilateral breasts and nipples; Z90.710 Acquired absence of both cervix and uterus
CPT/HCPCS: 45385; 82962; 88305; J2405

== ENCOUNTER → 2025-01-08 | Outpatient (CLI) | payer MEDICARE, SELFPAY ==
[2025-01-08 12:34] LABS: Hematocrit 44.2 % (37-47); Hemoglobin 14.6 g/dL (12.0-15.0); Immature Granulocytes Count 0.020 X10^3/uL (0.0-0.0); Mean Corp Hgb Conc 33.0 g/dL (32-36); Mean Corpuscular Volume 99.5 fL (81-99); Mean Platelet Vol. 9.6 fl (6.2-12.0); NRBC Flagged by Analyzer 0 % (0-5); Platelet Count 220 K/mm3 (150-450); RBC Distribution Width CV 12.5 % (11.6-14.6); RBC Distribution Width SD 45.4 fl (35.1-43.9); Red Blood Count 4.44 M/mm3 (4.2-5.4); White Blood Count 6.9 K/mm3 (4.4-11.0)
[2025-01-08 13:30] LABS: AST(SGOT) 37 U/L (<=31); Alanine Aminotransfer ALT/SGPT 39 U/L (<=34); Albumin, Serum 4.1 g/dL (3.4-4.8); Alkaline Phosphatase 103 U/L (35-104); Anion Gap 12 (5-15); BUN 11 mg/dL (4-19); BUN/Creat Ratio 15.6 RATIO (10-20); Calcium,Total 9.3 mg/dL (7.6-11.0); Carbon Dioxide 26.3 mmol/L (21.0-32.0); Chloride 101 mmol/L (98-108); Cholesterol 174 mg/dL (<=200); Globulin 2.3 g/dL (2.2-4.2); Glucose 154 mg/dL (70-99); Low Density Lipoprotein Calc. 70 mg/dL; Potassium 4.1 mmol/L (3.3-5.1); Triglycerides 376 mg/dL; Very Low Density Lipoprotein 75 mg/dL (5-40); Vitamin D,25 Hydroxy 35.0 ng/mL (30-100); cholesterol:hdl ratio screen 3.90
[2025-01-08 13:33] LABS: Creatinine, Urine (random) 220.00 mg/dL (28.00-217.00); Microalbumin,Random Urine < 12.0 mg/L (<20 mg/L)
== END | disposition home or self-care (01) ==
LOC: BFHLAB 08:38
PROVIDERS: PCP Family Medicine; Visit Provider Family Medicine
DX: I10 Essential (primary) hypertension (principal); E11.9 Type 2 diabetes mellitus without complications; E55.9 Vitamin D deficiency, unspecified; E78.5 Hyperlipidemia, unspecified; K76.0 Fatty (change of) liver, not elsewhere classified
CPT/HCPCS: 36415; 80053; 80061; 82043; 82306; 82570; 85025

== ENCOUNTER → 2025-01-31 | Outpatient (CLI) | payer MEDICARE, SELFPAY ==
--- NOTE | 2025-01-31 13:20 | MRI_ITS ---
PROCEDURE: BREAST BILATERAL W/O AND W 01/31/2025 REASON FOR EXAM: BRCA+, HX BREAST CANCER 61-year-old female with history of breast cancer status post bilateral mastectomy with implant reconstruction. Patient also is BRCA positive. TECHNIQUE: Procedure Code: [id number] Modality: MR Procedure: BREAST BILATERAL W/O AND W CONTRAST: 14 mL of IV Clariscan COMPARISON: MRI 04/27/2023 and 03/05/2021 FINDINGS: Postsurgical changes of bilateral mastectomy with bilateral retropectoral implant reconstruction. TISSUE DENSITY: The breasts are almost entirely fatty. Background Parenchymal Enhancement: Minimal RIGHT Breast: No suspicious mass or non-mass enhancement. LEFT Breast: No suspicious mass or non-mass enhancement. Other Findings: No suspicious axillary or internal mammary lymph nodes. Visualized portions of the thoracic and abdominal viscera are unremarkable. MRI/Breast Bilateral W/O and W IMPRESSION: There is no MR evidence of malignancy. OVERALL FINAL ASSESSMENT BI-RADS 1: NEGATIVE RECOMMENDATION: Routine annual follow-up in 1 Year Reading Location: [id number]
== END | disposition home or self-care (01) ==
LOC: MRI 13:17
PROVIDERS: PCP Family Medicine; Referring Provider Obstetrics & Gynecology; Visit Provider Obstetrics & Gynecology
DX: Z08 Encounter for follow-up examination after completed treatment for malignant neoplasm (principal); Z90.13 Acquired absence of bilateral breasts and nipples; Z85.3 Personal history of malignant neoplasm of breast; Z15.01 Genetic susceptibility to malignant neoplasm of breast; Z15.02 Genetic susceptibility to malignant neoplasm of ovary; Z15.09 Genetic susceptibility to other malignant neoplasm
CPT/HCPCS: 77049; A9575; A4216; C8908